=== PATIENT | male | born 1965 ===

== ENCOUNTER 2024-05-16 14:12 | Outpatient (AMB) | payer MEDICARE, MEDICAID, SELFPAY ==
[2024-05-16 14:19] VITALS: BP 130/70; PULSE 104; O2SAT 97; BMI 35.8
--- NOTE | 2024-05-16 14:19 | MHC.OFFVIS ---
Vital Signs 05/16/24 14:19 Height 5 ft 11 in Weight 256 lb 6.362 oz BMI 35.8 BP 130/70 Blood Pressure Location Lt brachial Position Sitting Pulse 104 H Pulse Source Pulse Oximeter Pulse Oximetry (%) 97 Oxygen Delivery Method Room Air Intake Visit Reasons: arthritis/gout (ATC recs not revd) Intake Note: Patient presents for arthritis and gout, and has had flare up for 3 days. Allergies No Known Allergies Allergy (Verified 05/16/24 14:23) HPI HPI arthritis/gout (ATC recs not revd): Details: He has been having a gout episode at least every month. He had prednisone at home and takes 3-4 tablets of 10 mg prednisone on the initial day and may need it for a few more days. Sometimes he only needs prednisone for a day. A few days ago he started experiencing pain in his foot. He was going to the ER yesterday but did not because of his appointment today. Today he woke up with swelling of his right foot. No other joints are involved. He stopped taking allopurinol 2 weeks ago. He has tried allopurinol 3 occasions and each time he has had a gout flare. [facility] Medical History (Updated 05/16/24 @ 15:23 by Santana Huerta MD) Achilles tendinitis, left leg Low testosterone Hypertension GERD (gastroesophageal reflux disease) CKD (chronic kidney disease) Gout Social History (Updated 05/16/24 @ 14:32 by Shayna Torres CMA) Alcohol intake: current Alcohol intake frequency: holidays/special occasions only Patient Tobacco Use Status: Never used Tobacco Review of Systems Const All systems reviewed & are unremarkable except as noted in HPI and below Physical Exam Vital Signs: Last Vital Signs Pulse 104 H 05/16/24 14:19 BP 130/70 05/16/24 14:19 Pulse Ox 97 05/16/24 14:19 Oxygen Delivery Method Room Air 05/16/24 14:19 BMI result Body Mass Index 35.8 Const Other: General: Comfortable Skin: No lesions seen MSK:Tender right midfoot and MTPs. Soft tissue swelling noted. No ankle tenderness. Good range of motion of right knee and hip. Left lower extremity is normal. Chronic left olecranon bursitis with nodules noted without tenderness on palpation. Good flexion-extension of elbows. Shoulder abduction 120 degrees with full internal and external rotation of both shoulders. 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 Recurrent gout affecting right foot. He is unable to tolerate allopurinol as it induces a gout flare every time he starts it. He has tried allopurinol on 3 occasions and each time he has had a gout flare. He has had recurrent gout flares monthly resolved with prednisone. Initially had loose stools when he started colchicine but that has subsided. Code(s): M10.9 - Gout, unspecified Category: Medical Qualifiers: Chronicity: chronic Gout etiology: due to renal impairment Gout site: multiple sites Presence of tophus: with tophus Qualified Code(s): M1A.39X1 - Chronic gout due to renal impairment, multiple sites, with tophus (tophi) Plan: Labs for disease and drug monitoring ordered Continue colchicine 0.6 mg twice a day After lab results are back, we will start PA process for Uloric Return to clinic in 1-2 months Orders: Orders Alanine Aminotransferase Today M10.9 - Gout, unspecified Uric Acid Today M10.9 - Gout, unspecified Creatinine Today M10.9 - Gout, unspecified Aspartate Amino Transferase Today M10.9 - Gout, unspecified Complete Blood Count Auto Diff Today M10.9 - Gout, unspecified Medications: New prednisone Take 1 tablet daily with food until joint pain and swelling resolves 40 mg (2 x 20 mg) PO DAILY 28 tabs 0RF Coding Level of Care Code Est Pt Level 4 (64752) Complex EM visit Add On G2211 Diagnoses Chronic gout due to renal impairment of multiple sites with tophus M1A.39X1 Chronicity: chronic Gout etiology: due to renal impairment Gout site: multiple sites Presence of tophus: with tophus
== END 2024-05-16 14:53 | disposition home or self-care (01) ==
PROVIDERS: Visit Provider Internal Medicine Rheumatology
DX: M1A.39X1 Chronic gout due to renal impairment, multiple sites, with tophus (tophi) (principal)
CPT/HCPCS: 99214; G2211

== ENCOUNTER → 2024-05-16 14:12 | Outpatient (BNVA) | payer MEDICARE, SELFPAY | PROVIDERS: Visit Provider Internal Medicine Rheumatology | DX: M1A.39X1 Chronic gout due to renal impairment, multiple sites, with tophus (tophi) (principal) | CPT/HCPCS: 99212 ==

== ENCOUNTER 2024-06-04 15:01 | Outpatient (AMB) | payer MEDICARE, MEDICAID, SELFPAY ==
--- NOTE | 2024-06-04 15:29 | AM.OFFVISNUR ---
Intake Visit Reasons: injection depomedrol Allergies No Known Allergies Allergy (Verified 05/16/24 14:23) Office Meds methylprednisolone sod suc(PF) 125 mg/2 mL solution for injection Performing Provider: Katelynn Mccoy MD Performing Location: [facility] Administered by: Frank Barr RN on 06/04/24 15:29 Dose Route Admin Location Dispensed Lot Number Expiration Date NDC Busgirl 80 mg IM left buttock 1.28 ea [id number] 11/18/25 7647-6268-90 [facility] sod suc(PF) 40 mg/mL solution for injection Performing Provider: Katelynn Mccoy MD Performing Location: [facility] Administered by: Frank Barr RN on 06/04/24 15:29 Dose Route Admin Location Dispensed Lot Number Expiration Date NDC Busgirl 40 mg IM Right buttock 1 ea [id number] 10/19/25 2348-0767-80 [facility] Comments: Consents signed for procedure. Confirmed dosage with Dr. Huerta and [facility]. Pt received 40 mg IM injection of depo-medrol in Right buttock and 80 mg IM depo-medrol in Left buttock. Patient tolerated procedure well w/o issue or concern. Pt educated on s/s to be aware of e.g. flushing, increased pain/warmth, swelling, tenderness, redness, rash to injected area. Pt instructed to call office or seek urgent medical attention should he become symptomatic. Patient observed for adverse side effects x 30 minutes without incident. Assessment & Plan Assessment & Plan Orders: Orders AMB Methylprednisolone Sod Succ Injection Today M1A.39X1 - Chronic gout due to renal impairment, multiple sites, with tophus (tophi) Medications: New methylprednisolone sod suc(PF) 40 mg IM ONCE 1 ea 0RF M1A.39X1 - Chronic gout due to renal impairment, multiple sites, with tophus (tophi) methylprednisolone sod suc(PF) 80 mg (1.28 mL) IM ONCE 1 ea 0RF M1A.39X1 - Chronic gout due to renal impairment, multiple sites, with tophus (tophi)
== END 2024-06-04 15:51 | disposition home or self-care (01) ==
PROVIDERS: Visit Provider Internal Medicine Rheumatology
DX: M1A.39X1 Chronic gout due to renal impairment, multiple sites, with tophus (tophi) (principal)

== ENCOUNTER → 2024-06-04 15:01 | Outpatient (BNVA) | payer MEDICARE, MEDICAID, SELFPAY | PROVIDERS: Visit Provider Internal Medicine Rheumatology | DX: M1A.39X1 Chronic gout due to renal impairment, multiple sites, with tophus (tophi) (principal) | CPT/HCPCS: 96372 ==

== ENCOUNTER 2024-06-18 08:20 | Outpatient (AMB) | payer MEDICARE, MEDICAID, SELFPAY ==
--- NOTE | 2024-06-18 08:21 | A.OFFVIS_ITS ---
Vital Signs 06/18/24 08:24 Height 5 ft 11 in Weight 257 lb 6 oz BMI 35.9 BP 124/72 Blood Pressure Location Lt brachial Position Sitting Pulse 103 H Pulse Source Pulse Oximeter Pulse Oximetry (%) 95 Oxygen Delivery Method Room Air Intake Visit Reasons: 1 mo follow up Intake Note: Patient presents for follow up on gout, last seen 05/16/[address] Huerta Allergies No Known Allergies Allergy (Verified 06/18/24 08:25) HPI HPI 1 mo follow up: Details: He had 2 weeks relief with Depo-Medrol 120 mg IM. He woke up this morning with left knee and ankle pain. He has pain behind his Achilles tendon. After receiving Depo-Medrol he reports that left elbow swelling and nodules reduced in size. He has hand pain and swelling. He tried Ozempic short term from his friend who had extra medication and received benefit. He saw PCP who told him that his blood pressure has improved along with other medical conditions. He was referred to a specialist for medication management of weight loss but reports that insurance of the practice did does not cover visit. [facility] Medical History (Updated 06/18/24 @ 09:16 by Santana Huerta MD) Achilles tendinitis, left leg Low testosterone Hypertension GERD (gastroesophageal reflux disease) CKD (chronic kidney disease) Gout Social History (Updated 05/16/24 @ 14:32 by Shayna Torres [employer]ICE) Alcohol intake: current Alcohol intake frequency: holidays/special occasions only Patient Tobacco Use Status: Never used Tobacco Review of Systems Const All systems reviewed & are unremarkable except as noted in HPI and below Physical Exam Vital Signs: Last Vital Signs Pulse 103 H 06/18/24 08:24 BP 124/72 06/18/24 08:24 Pulse Ox 95 06/18/24 08:24 Oxygen Delivery Method Room Air 06/18/24 08:24 BMI result Body Mass Index 35.9 Const Other: General: Comfortable Skin: No lesions seen MSK: Tender and swollen bilateral 3rd MCPs and PIPs. He is unable to make us if with both hands. No tenderness of wrists. Chronic left olecranon bursitis with nodules noted without tenderness on palpation. Good flexion-extension of elbows. Good range of motion of shoulders. Left knee is swollen with tenderness on palpation. No tenderness of tibial talar joint. No midfoot tenderness. Tenderness with soft tissue swelling left Achilles tendon. No MTP tenderness. Assessment & Plan Assessment & Plan (1) Gout: Comment: Polyarticular chronic tophaceous gout is uncontrolled. He has required multiple courses of prednisone including Depo-Medrol but continues to have recurrent episodes on colchicine 0.6 mg b.i.d.. He could not tolerate allopurinol with introduction on 3 occasions as it caused gout flare. We discussed next steps in treatment with consideration of CKD stage III (11/2023 labs). I will start longer prednisone course to reduce frequency of gout flares and it will act as a bridge to urate lowering therapy, Uloric. Code(s): M10.9 - Gout, unspecified Category: Medical Qualifiers: Chronicity: chronic Gout etiology: due to renal impairment Gout site: multiple sites Presence of tophus: with tophus Qualified Code(s): M1A.39X1 - Chronic gout due to renal impairment, multiple sites, with tophus (tophi) Plan: Labs for disease and drug monitoring ordered Continue colchicine 0.6 mg twice a day Start prednisone course: 40 mg daily for 2 weeks, 30 mg daily for 2 weeks, 20 mg daily for 2 weeks then remain on 10 mg daily Uloric 40 mg daily ordered We discussed weight management. He was referred to a ?enocrinologist specialist but the practice will not accept his insurance. Follow-up with PCP. I recommend that he contact [facility] for visit with sanding machine operator Dr. Cassidy Conley. Return to clinic in 1 month Medications: New febuxostat (Uloric) 40 mg PO DAILY 30 tabs 11RF prednisone Take 4 daily 2 week, 3 tablet daily 2 week, 2 tablets daily 2 weeks, then stay on prednisone 10mg daily 10 mg PO DIRECTED 144 tabs 0RF Coding Level of Care Code Est Pt Level 4 (91376) Complex EM visit Add On G2211 Diagnoses Chronic gout due to renal impairment of multiple sites with tophus M1A.39X1 Chronicity: chronic Gout etiology: due to renal impairment Gout site: multiple sites Presence of tophus: with tophus
[2024-06-18 08:24] VITALS: BP 124/72; PULSE 103; O2SAT 95; BMI 35.9
--- OUTSIDE RECORDS SUMMARY | 2024-06-18 08:42 | XMS_ITS | Encounter Summary ---
Author Organization [facility], Address [address] [address] Phone Care Team Providers Care Correspondence Representative Name Role Phone Alexey Espinosa MD Primary Care Provider [phone]- [phone] Encounter Details Date Type Department Care Team (Late st Contact Info) Description 03/25/2024 Documentation Only [facility] [address] [place] [address] Juan Francisco Sidhu [place] [address] [place] [phone] Social History Tobacco Use Types Packs/Day Years Used Date Smoking Tobacco: Never Assessed Sex and Gender Information Value Date Recorded Sex Assigned at Not on file Legal Sex Male 2:38 PM EST Gender Identity Not on file Sexual Orientation Not on file documented as of this encounter Plan of Treatment Upcoming Encounters Date Type Department Care Team (Late st Contact Info) Description 08/30/2024 3:30 PM EDT Office Visit [facility] [address] [place] [address] Tyler Thomas MD [address] [place] [address] documented as of this encounter Visit Diagnoses Not on filedocumented in this encounter Care Teams Correspondence Representative Relationship Specialty Start Date End Date Alexey Espinosa MD [address] [place] [address] PCP - General Internal Medicine 03/25/24 documented as of this encounter
--- OUTSIDE RECORDS SUMMARY | 2024-06-18 08:42 | XMS_ITS | Clinical Summary ---
Author Organization [facility] Address [address] [address] Phone Care Team Providers Care Recruiting And Selection Consultant Name Role Phone Alexey Espinosa MD Primary Care Provider +1- [phone] Encounters Date Type Department Care Team Description 03/25/2024 Documentation Only [facility] [address] [address] Juan Francisco Sidhu [place] from Last 3 Months Social History Tobacco Use Types Packs/Day Years Used Date Smoking Tobacco: Never Assessed Sex and Gender Information Value Date Recorded Sex Assigned at Not on file Legal Sex Male 2:38 PM EST Gender Identity Not on file Sexual Orientation Not on file Plan of Treatment Upcoming Encounters Date Type Department Care Team (Late st Contact Info) Description 08/30/2024 3:30 PM EDT Office Visit [facility] [address] [address] Tyler Thomas MD [address] [place] [address] [place] [place] [address] Health Maintenance Due Date Last Done Comments Pneumococcal Vaccine: Pediat rics (0 to 5 Years) and At-Risk Patients (6 to 64 Years) (1 of 2 - PCV) [birth year]02/1971 Hepatitis B Vaccine (1 of 3 - 19+ 3-dose series) 12/01 Colorectal Cancer Screening: Annual FOBT 2014 Colorectal Cancer Screening: Colonoscopy 2014 Colorectal Cancer Screening: Sigmoidoscopy 2014 Influenza Vaccine (#1) 2024 Insurance MEDICARE MEDICAID [place] Care Teams Recruiting And Selection Consultant Relationship Specialty Start Date End Date Alexey Espinosa MD [address] [place] [id number] PCP - General Internal Medicine 03/25/24
== END 2024-06-18 09:07 | disposition home or self-care (01) ==
PROVIDERS: Visit Provider Internal Medicine Rheumatology
DX: M1A.39X1 Chronic gout due to renal impairment, multiple sites, with tophus (tophi) (principal)
CPT/HCPCS: 99214; G2211

== ENCOUNTER → 2024-06-18 08:20 | Outpatient (BNVA) | payer MEDICARE, MEDICAID, SELFPAY | PROVIDERS: Visit Provider Internal Medicine Rheumatology | DX: M1A.39X1 Chronic gout due to renal impairment, multiple sites, with tophus (tophi) (principal) | CPT/HCPCS: 99212 ==

== ENCOUNTER 2024-07-16 08:33 | Outpatient (REF) | payer MEDICARE, MEDICAID, SELFPAY ==
--- OUTSIDE RECORDS SUMMARY | 2024-07-16 09:05 | XMS_ITS | Encounter Summary ---
Author Organization [facility] [place], Address [address] [address] Phone Care Team Providers Care Sales Team Manager Name Role Phone Alexey Espinosa MD Primary Care Provider +1- [phone] Encounter Details Date Type Department Care Team (Late st Contact Info) Description 03/25/2024 Documentation Only [facility] [address] [place] [address] Juan Francisco Sidhu [place] [address] [place] [phone] Social History Tobacco Use Types Packs/Day Years [...] Visit [facility] [address] [place] [address] Tyler Thomas MD [address] [facility] [address] [place] [address] documented as of this encounter Visit Diagnoses Not on filedocumented in this encounter Care Teams Sales Team Manager Relationship Specialty Start Date End Date Alexey Espinosa MD [address] [place] [address] PCP - General Internal Medicine 03/25/24 documented as of this encounter
--- OUTSIDE RECORDS SUMMARY | 2024-07-16 09:05 | XMS_ITS | Clinical Summary ---
Author Organization [facility] Address [address] [facility] [address] [facility] [place] [address] Phone Care Team Providers Care Case Management Coordinator Name Role Phone Alexey Espinosa MD Primary Care Provider +1- [phone] Social History Tobacco Use Types Packs/Day Years [...] Office Visit [facility] [address] [facility] [address] [address] Tyler Thomas MD [address] [facility] [place] [address] Health Maintenance Due Date Last [...] 2024 Insurance MEDICARE [place]ICAID [place] Care Teams Case Management Coordinator Relationship Specialty Start Date End Date Alexey Espinosa MD [address] [place] [id number] PCP - General Internal Medicine 03/25/24
[2024-07-16 18:06] LABS: MANUAL DIFF FLAG NO
[2024-07-16 18:12] LABS: Basophils Percent Auto 0.5 % (0-2); Eosinophils Absolute Auto 0.1 X10*3/uL (0.0-0.4); Eosinophils Percent Auto 1.2 % (0-4); Hematocrit 45.8 % (42.0-52.0); Hemoglobin 14.8 g/dl (14.0-18.0); Imm Gran Abs Auto 0.04 X10*3/uL (0.00-0.03); Imm Gran Pct Auto 0.9 % (0.0-0.4); Lymphocytes Absolute Auto 0.9 X10*3/uL (1.2-4.9); Mean Corpuscular HGB Conc 32.3 g/dl (31.0-36.0); Mean Corpuscular Hemoglobin 29.7 pg (27.0-33.0); Mean Platelet Volume 11.3 fL (9.4-12.4); Monocytes Absolute Auto 0.4 X10*3/uL (0.1-1.2); Monocytes Percent Auto 10.3 % (2-11); Neutrophils Absolute Auto 2.9 x10*3/uL (2.0-8.3); Neutrophils Percent Auto 67.1 % (45-73); Platelet Count 295 X10*3/uL (160-400); Red Blood Count 4.98 X10*6/uL (4.60-5.80); Red Cell Distribution Width 14.3 % (11.0-16.0); White Blood Count 4.3 X10*3/uL (4.8-10.8)
[2024-07-16 18:26] LABS: Alanine Aminotransferase 34 U/L (0-40); Aspartate Amino Transferase 31 U/L (5-37); Estimated Glomerular Filt Rate 41; Uric Acid 11.8 mg/dL (3.4-7.0)
== END 2024-07-16 08:34 | disposition home or self-care (01) ==
LOC: HO.HKASLDS 08:33
PROVIDERS: Visit Provider Internal Medicine Rheumatology
DX: M10.9 Gout, unspecified (principal)
CPT/HCPCS: 36415; 82565; 84450; 84460; 84550; 85025

== ENCOUNTER 2024-07-18 09:11 | Outpatient (AMB) | payer MEDICARE, MEDICAID, SELFPAY ==
--- NOTE | 2024-07-18 09:22 | A.OFFVIS_ITS ---
Vital Signs 07/18/24 09:23 Height 5 ft 10 in Weight 261 lb 0.437 oz BMI 37.4 BP 126/92 H Blood Pressure Location Lt brachial Position Sitting Pulse 106 H Pulse Source Pulse Oximeter Pulse Oximetry (%) 95 Oxygen Delivery Method Room Air Intake Visit Reasons: Follow Up 1mo Intake Note: Patient presents for gout follow up. Allergies No Known Allergies Allergy (Verified 07/18/24 09:24) HPI HPI Follow Up 1mo: Details: He took prednisone for at least 2 weeks and stopped when pain resolved. [facility] Medical History (Updated 07/18/24 @ 09:49 by Santana Huerta MD) Achilles tendinitis, left leg Low testosterone Hypertension GERD (gastroesophageal reflux disease) CKD (chronic kidney disease) Gout Social History (Updated 05/16/24 @ 14:32 by Shayna Torres [facility]) Alcohol intake: current Alcohol intake frequency: holidays/special occasions only Patient Tobacco Use Status: Never used Tobacco Review of Systems Const All systems reviewed & are unremarkable except as noted in HPI and below Physical Exam Vital Signs: Last Vital Signs Pulse 106 H 07/18/24 09:23 BP 126/92 H 07/18/24 09:23 Pulse Ox 95 07/18/24 09:23 Oxygen Delivery Method Room Air 07/18/24 09:23 BMI result Body Mass Index 37.4 Const Other: General: Comfortable Skin: No lesions seen MSK: No tenderness of wrists or small joints in hands. Chronic left olecranon bursitis with nodules noted with tenderness on palpation and warmth. Olecranon bursitis palpated right elbow without warmth or tenderness. Good flexion- extension of elbows. Good range of motion of shoulders. Left knee is swollen without tenderness on palpation with warmth. Pain with left knee flexion and extension. No tenderness of tibial talar joint. No midfoot tenderness. No MTP tenderness. Assessment & Plan Assessment & Plan (1) Gout: Comment: Uncontrolled. He did not complete full course of prednisone. We discussed the importance of treatment of polyarticular gout with a prolonged course of prednisone. Febuxostat has been approved. Uric acid level 07/16/2024 was 11.8. His uric acid goal is less than 5. Rheumatology history: Polyarticular chronic tophaceous gout. He has required multiple courses of prednisone including Depo-Medrol but continues to have recurrent episodes on colchicine 0.6 mg b.i.d. He could not tolerate allopurinol with introduction on 3 occasions as it caused gout flare. CKD stage III (11/2023 labs). Febuxostat 06/2024- Code(s): M10.9 - Gout, unspecified Category: Medical Qualifiers: Chronicity: chronic Gout etiology: due to renal impairment Gout site: multiple sites Presence of tophus: with tophus Qualified Code(s): M1A.39X1 - Chronic gout due to renal impairment, multiple sites, with tophus (tophi) Plan: Start febuxostat 40 mg daily Continue colchicine 0.6 mg twice a day for gout prophylaxis Start prednisone course: 40 mg daily for 2 weeks, 30 mg daily for 2 weeks, 20 mg daily for 2 weeks, 10 mg daily for 2 weeks, 5 mg daily for 2 weeks and stop Encouraged weight loss. I recommend PCP follow-up for consideration of medical management of weight loss Return to clinic in 6 weeks Medications: Changed From febuxostat (Uloric) 40 mg PO DAILY 30 tabs 11RF To febuxostat (Uloric) PA approved. 40 mg PO DAILY 30 tabs 11RF From prednisone Take 4 daily 2 week, 3 tablet daily 2 week, 2 tablets daily 2 weeks, then stay on prednisone 10mg daily 10 mg PO DIRECTED 144 tabs 0RF To prednisone Take 4 daily 2 week, 3 tablet daily 2 week, 2 tablets daily 2 weeks, 1 tablet daily 2 weeks, 0.5 tablet daily 2 weeks then stop. Take prednisone with food. 10 mg PO DIRECTED 210 tabs 0RF Discontinued prednisone Take 1 tablet daily with food until joint pain and swelling resolves Discontinued Reason: Doctor's Order 40 mg (2 x 20 mg) PO DAILY 28 tabs 0RF Coding Level of Care Code Est Pt Level 4 (85878) Complex EM visit Add On G2211 Diagnoses Chronic gout due to renal impairment of multiple sites with tophus M1A.39X1 Chronicity: chronic Gout etiology: due to renal impairment Gout site: multiple sites Presence of tophus: with tophus
[2024-07-18 09:23] VITALS: BP 126/92; PULSE 106; O2SAT 95; BMI 37.4
--- OUTSIDE RECORDS SUMMARY | 2024-07-18 10:02 | XMS_ITS | Encounter Summary ---
Author Organization [facility] Address [address] [place] [address] Care Team Providers Care Stress Test Technician Name Role Phone Alexey Espinosa MD Primary Care Provider +1- [phone] Encounter Details Date Type Department Care Team (Late st Contact Info) Description 07/16/2024 Lab Requisition [facility] - Main Lab [address] [place] [address] Naresh Lennon PA [address] [place] [phone] Testicular hypofunction Social History Tobacco Use Types Packs/Day Years Used Date Smoking Tobacco: Never Assessed Sex and Gender Information Value Date Recorded Sex Assigned at Not on file Legal Sex Male 4:16 PM EST Gender Identity Not on file Sexual Orientation Not on file documented as of this encounter Plan of Treatment Not on file documented as of this encounter Procedures Procedure Name Priority Date/Time Associated Diagnosis Comments CBC WITH AUTO DIFFERENTIAL Routine 07/16/2024 9:07 AM EST Testicular hypofunction CBC AND DIFFERENTIAL Routine 07/16/2024 9:07 AM EST Testicular hypofunction documented in this encounter Results * (ABNORMAL) CBC auto differential (07/16/2024 9:07 AM EST) WBC 4.2(L) 4.8 - 10.8 K/[facility] LAB HEMETOLOGY METHOD 07/16/2024 1:55 PM EST [facility] RBC 5.00 4.50 - 5.50 M/[facility] LAB HEMETOLOGY METHOD 07/16/2024 1:55 PM EST [facility] Hemoglobin 15.0 13.5 - 17.5 g/dL LAB HEMETOLOGY METHOD 07/16/2024 1:55 PM [facility] Hematocrit 46.5 42.0 - 54.0 % LAB HEMETOLOGY METHOD 07/16/2024 1:55 PM [facility] MCV 92.3 79.0 - 98.0 FL LAB HEMETOLOGY METHOD 07/16/2024 1:55 PM [facility] MCH 29.8 27.0 - 32.0 pcg LAB HEMETOLOGY METHOD 07/16/2024 1:55 PM [facility] MCHC 32.3 32.0 - 37.0 g/dL LAB HEMETOLOGY METHOD 07/16/2024 1:55 PM [facility] RDW 14.3 11.0 - 15.0 % LAB HEMETOLOGY METHOD 07/16/2024 1:55 PM [facility] Platelets 237 130 - 400 K/mcL LAB HEMETOLOGY METHOD 07/16/2024 1:55 PM [facility] MPV 11.9(H) 7.0 - 11.0 FL LAB HEMETOLOGY METHOD 07/16/2024 1:55 PM [facility] NRBC 0.0 <1.0 % LAB HEMETOLOGY METHOD 07/16/2024 1:55 PM [facility] NRBC Absolute 0.00 <0.10 K/mcL LAB HEMETOLOGY METHOD 07/16/2024 1:55 PM [facility] Neutrophils Relative 67.7 % LAB HEMETOLOGY METHOD 07/16/2024 1:55 PM [facility] Lymphocytes Relative 19.0 % LAB HEMETOLOGY METHOD 07/16/2024 1:55 PM [facility] Monocytes Relative 10.7 % LAB HEMETOLOGY METHOD 07/16/2024 1:55 PM [facility] Eosinophils Relative 1.2 % LAB HEMETOLOGY METHOD 07/16/2024 1:55 PM EST [facility] Basophils Relative 0.5 % LAB HEMETOLOGY METHOD 07/16/2024 1:55 PM [facility] Immature Granulocytes Relative 0.9 % LAB HEMETOLOGY METHOD 07/16/2024 1:55 PM [facility] Neutrophils Absolute 2.86 1.50 - 7.00 K/mcL LAB HEMETOLOGY METHOD 07/16/2024 1:55 PM [facility] Lymphocytes Absolute 0.80(L) 1.00 - 5.00 K/mcL LAB HEMETOLOGY METHOD 07/16/2024 1:55 PM [facility] Monocytes Absolute 0.45 0.20 - 1.00 K/mcL LAB HEMETOLOGY METHOD 07/16/2024 1:55 PM EST [facility] Eosinophils Absolute 0.05 0.00 - 0.50 K/mcL LAB HEMETOLOGY METHOD 07/16/2024 1:55 PM EST [facility] Basophils Absolute 0.02 0.00 - 0.20 K/mcL LAB HEMETOLOGY METHOD 07/16/2024 1:55 PM [facility] Immature Granulocytes Absolute 0.04(H) 0.00 - 0.03 K/mcL LAB HEMETOLOGY METHOD 07/16/2024 1:55 PM EST [facility] Blood Venous blood specimen / Unknown 07/16/2024 9:07 AM EST 07/16/2024 1:09 PM EST us Naresh MUNOZ LAB BLOOD ORDERABLES Final Res ult [facility] [address] [place] [address], documented in this encounter Visit Diagnoses Diagnosis Testicular hypofunction Other testicular hypofunction documented in this encounter Care Teams Stress Test Technician Relationship Specialty Start Date End Date Alexey Espinosa MD [address] [place] [address] PCP - General Internal Medicine 07/16/24 documented as of this encounter
--- OUTSIDE RECORDS SUMMARY | 2024-07-18 10:02 | XMS_ITS | Clinical Summary ---
Author Organization 299 [facility] Address [address] [place] [address] Phone Care Team Providers Care Clinical Data Manager Name Role Phone Alexey Espinosa MD Primary Care Provider +1- [phone] Encounters Date Type Department Care Team Description 07/16/2024 Lab Requisition [facility] - Main Lab 299 [facility] [place] [address] Naresh Lennon PA Testicular hypofunction from Last 3 Months Social History Tobacco Use Types Packs/Day Years Used Date Smoking Tobacco: Never Assessed Sex and Gender Information Value Date Recorded Sex Assigned at Not on file Legal Sex Male 4:16 PM EST Gender Identity Not on file Sexual Orientation Not on file Plan of Treatment Health Maintenance Due Date Last Done Comments DTaP,Tdap,and Td Vaccines (1 - Tdap) 1984 Hepatitis B Vaccines (1 of 3 - 19+ 3-dose series) 1984 Pneumococcal Vaccine: 50+ Ye ars (1 of 1 - PCV) 12/02/2015 Zoster Vaccines (1 of 2) 12/02/2015 COVID-19 Vaccine (2023-2 5 season) 2024 Influenza Vaccine (#1) 2024 Cholesterol Screening (Lipid Panel) 07/17/2024 Colorectal Cancer Screening: Colonoscopy 07/17/2024 Depression Screening 07/17/2024 HIV Screening 07/17/2024 Hepatitis C Screening 07/17/2024 Medicare Annual Wellness Visit 07/17/2024 Social Influencers of Health Screening 07/17/2024 HIB Vaccines Aged Out No longer eligi ble based on patient's age to complete this topic HPV Vaccines Aged Out No longer eligi ble based on patient's age to complete this topic Hepatitis A Vaccines Aged Out No long er eligible based on patient's age to complete this topic IPV Vaccines Aged Out No longer eligi ble based on patient's age to complete this topic MMR Vaccines Aged Out No longer eligi ble based on patient's age to complete this topic Meningococcal ACWY Vaccine Aged Out N o longer eligible based on patient's age to complete this topic Meningococcal B Vacine Aged Out No lo nger eligible based on patient's age to complete this topic Pneumococcal Vaccine: Pediat rics (0 to 5 Years) and At-Risk Patients (6 to 64 Years) Aged Out No longer eligible b ased on patient's age to complete this topic RSV Immunization Patients Un ortiz 20 months Aged Out No longer eligible b ased on patient's age to complete this topic Varicella Vaccines Aged Out No longer eligible based on patient's age to complete this topic Procedures Procedure Name Priority Date/Time Associated Diagnosis Comments CBC WITH AUTO DIFFERENTIAL Routine 07/16/2024 9:07 AM EST Testicular hypofunction CBC AND DIFFERENTIAL Routine 07/16/2024 9:07 AM EST Testicular hypofunction from Last 3 Months Results * (ABNORMAL) CBC auto differential (07/16/2024 9:07 AM EST) WBC 4.2(L) 4.8 - 10.8 K/mcL LAB HEMETOLOGY METHOD 07/16/2024 1:55 PM [facility] LAB RBC 5.00 4.50 - 5.50 M/mcL LAB HEMETOLOGY METHOD 07/16/2024 1:55 PM [facility] LAB Hemoglobin 15.0 13.5 - 17.5 g/dL LAB HEMETOLOGY METHOD 07/16/2024 1:55 PM [facility] LAB Hematocrit 46.5 42.0 - 54.0 % LAB HEMETOLOGY METHOD 07/16/2024 1:55 PM [facility] LAB MCV 92.3 79.0 - 98.0 FL LAB HEMETOLOGY METHOD 07/16/2024 1:55 PM [facility] LAB MCH 29.8 27.0 - 32.0 pcg LAB HEMETOLOGY METHOD 07/16/2024 1:55 PM [facility] LAB MCHC 32.3 32.0 - 37.0 g/dL LAB HEMETOLOGY METHOD 07/16/2024 1:55 PM [facility] LAB RDW 14.3 11.0 - 15.0 % LAB HEMETOLOGY METHOD 07/16/2024 1:55 PM [facility] LAB Platelets 237 130 - 400 K/mcL LAB HEMETOLOGY METHOD 07/16/2024 1:55 PM [facility] LAB MPV 11.9(H) 7.0 - 11.0 FL LAB HEMETOLOGY METHOD 07/16/2024 1:55 PM [facility] LAB NRBC 0.0 <1.0 % LAB HEMETOLOGY METHOD 07/16/2024 1:55 PM [facility] LAB NRBC Absolute 0.00 <0.10 K/mcL LAB HEMETOLOGY METHOD 07/16/2024 1:55 PM [facility] LAB Neutrophils Relative 67.7 % LAB HEMETOLOGY METHOD 07/16/2024 1:55 PM [facility] LAB Lymphocytes Relative 19.0 % LAB HEMETOLOGY METHOD 07/16/2024 1:55 PM [facility] LAB Monocytes Relative 10.7 % LAB HEMETOLOGY METHOD 07/16/2024 1:55 PM [facility] LAB Eosinophils Relative 1.2 % LAB HEMETOLOGY METHOD 07/16/2024 1:55 PM [facility] LAB Basophils Relative 0.5 % LAB HEMETOLOGY METHOD 07/16/2024 1:55 PM [facility] LAB Immature Granulocytes Relative 0.9 % LAB HEMETOLOGY METHOD 07/16/2024 1:55 PM [facility] LAB Neutrophils Absolute 2.86 1.50 - 7.00 K/mcL LAB HEMETOLOGY METHOD 07/16/2024 1:55 PM EST [facility] Lymphocytes Absolute 0.80(L) 1.00 - 5.00 K/[facility] LAB HEMETOLOGY METHOD 07/16/2024 1:55 PM EST [facility] LAB Monocytes Absolute 0.45 0.20 - 1.00 K/mcL LAB HEMETOLOGY METHOD 07/16/2024 1:55 PM EST [facility] Eosinophils Absolute 0.05 0.00 - 0.50 K/[facility] LAB HEMETOLOGY METHOD 07/16/2024 1:55 PM EST [facility] Basophils Absolute 0.02 0.00 - 0.20 K/[facility] LAB HEMETOLOGY METHOD 07/16/2024 1:55 PM EST [facility] Immature Granulocytes Absolute 0.04(H) 0.00 - 0.03 K/[facility] LAB HEMETOLOGY METHOD 07/16/2024 1:55 PM EST [facility] Blood Venous blood specimen / Unknown 07/16/2024 9:07 AM EST 07/16/2024 1:09 PM EST us Naresh MUNOZ LAB BLOOD ORDERABLES Final Res ult [facility] [address] [place] [address], [place] [phone] from Last 3 Months Insurance MEDICARE MEDICAID - [place] Care Teams Clinical Data Manager Relationship Specialty Start Date End Date Alexey Espinosa MD [address] [place] [phone] PCP - General Internal Medicine 07/16/24
--- OUTSIDE RECORDS SUMMARY | 2024-07-18 10:02 | XMS_ITS | Encounter Summary ---
Author Organization [facility], Address [address] [address] Phone Care Team Providers Care Capper Machine Operator Name Role Phone Alexey Espinosa MD Primary Care Provider +1- [phone] Encounter Details Date Type Department Care Team (Late st Contact Info) Description 03/25/2024 Documentation Only [facility] [address] [place] [address] Juan Francisco Sidhu [place] [address] [place] [phone] Social History Tobacco Use Types Packs/Day Years [...] Visit [facility] [address] [place] [address] Tyler Thomas MD [address] [place] [address] documented as of this encounter Visit Diagnoses Not on filedocumented in this encounter Care Teams Capper Machine Operator Relationship Specialty Start Date End Date Alexey Espinosa MD [address] [place] [address] PCP - General Internal Medicine 03/25/24 documented as of this encounter
--- OUTSIDE RECORDS SUMMARY | 2024-07-18 10:02 | XMS_ITS | Clinical Summary ---
Author Organization [facility] Address [address] [place] [address] Phone Care Team Providers Care [employer] Team Member Name Role Phone Alexey Espinosa MD Primary Care Provider +1- [phone] Social History Tobacco Use Types Packs/Day Years [...] Office Visit [facility] [address] [place] [address] Tyler Thomas MD [address] [facility] [address] [place] [address] Health Maintenance Due Date Last [...] 2024 Insurance MEDICARE [place]ICAID [place] Care Teams [employer] Team Member Relationship Specialty Start Date End Date Alexey Espinosa MD [address] [place] [phone] PCP - General Internal Medicine 03/25/24
== END 2024-07-18 09:42 | disposition home or self-care (01) ==
PROVIDERS: Visit Provider Internal Medicine Rheumatology
DX: M1A.39X1 Chronic gout due to renal impairment, multiple sites, with tophus (tophi) (principal)
CPT/HCPCS: 99214; G2211

== ENCOUNTER → 2024-07-18 09:11 | Outpatient (BNVA) | payer MEDICARE, MEDICAID, SELFPAY | PROVIDERS: Visit Provider Internal Medicine Rheumatology | DX: M1A.39X1 Chronic gout due to renal impairment, multiple sites, with tophus (tophi) (principal) | CPT/HCPCS: 99212 ==

== ENCOUNTER 2024-08-29 09:59 | Outpatient (AMB) | payer MEDICARE, MEDICAID, SELFPAY ==
--- NOTE | 2024-08-29 10:03 | A.OFFVIS_ITS ---
Vital Signs 08/29/24 10:05 Height 5 ft 10 in Weight 261 lb 8 oz BMI 37.5 BP 130/80 Blood Pressure Location Lt brachial Position Sitting Pulse 113 H Pulse Source Pulse Oximeter Pulse Oximetry (%) 96 Oxygen Delivery Method Room Air Intake Visit Reasons: 6 Weeks Intake Note: Patient presents for gout follow up. Accompanied by: self Allergies No Known Allergies Allergy (Verified 08/29/24 10:05) HPI HPI 6 Weeks: Details: No new joint swelling. He completed prednisone course 2 weeks ago. He is moving better. [facility] Medical History Achilles tendinitis, left leg Low testosterone Hypertension GERD (gastroesophageal reflux disease) CKD (chronic kidney disease) Gout Social History Alcohol intake: current Alcohol intake frequency: holidays/special occasions only Patient Tobacco Use Status: Never used Tobacco Review of Systems Const All systems reviewed & are unremarkable except as noted in HPI and below Physical Exam Vital Signs: Last Vital Signs Pulse 113 H 08/29/24 10:05 BP 130/80 08/29/24 10:05 Pulse Ox 96 08/29/24 10:05 Oxygen Delivery Method Room Air 08/29/24 10:05 BMI result Body Mass Index 37.5 Const Other: General: Comfortable Skin: No lesions seen MSK: No tenderness of wrists or small joints in hands. Chronic left olecranon bursa is nodular without swelling Good flexion-extension of elbows. Normal range of motion of shoulders. Mild synovitis of bilateral knees without warmth. No tenderness of ankle joint. No midfoot tenderness. No MTP tenderness. Assessment & Plan Assessment & Plan (1) Gout: Comment: Synovitis and olecranon bursitis has resolved with long prednisone course. He started febuxostat. His uric acid goal is less than 5. Rheumatology history: Polyarticular chronic tophaceous gout. He has required multiple courses of prednisone including Depo-Medrol but continues to have recurrent episodes on colchicine 0.6 mg b.i.d. He could not tolerate allopurinol with introduction on 3 occasions as it caused gout flare. CKD stage III (11/2023 labs). Febuxostat 06/2024- Code(s): M10.9 - Gout, unspecified Category: Medical Qualifiers: Chronicity: chronic Gout etiology: due to renal impairment Gout site: multiple sites Presence of tophus: with tophus Qualified Code(s): M1A.39X1 - Chronic gout due to renal impairment, multiple sites, with tophus (tophi) Plan: Labs for disease and drug monitoring ordered Continue febuxostat 40 mg daily. If uric acid level is not less than 5, I will increase febuxostat to 80 mg daily. He will need a new PA Continue colchicine 0.6 mg twice a day He will take for prednisone 40 mg for 1-5 days when he has a flare. Prednisone prescribed. He will also call office to report that he is having a flare. Return to clinic in 3 months (2) Other alf (current) drug therapy: Code(s): Z79.899 - Other alf (current) drug therapy Category: Medical Plan: See above Orders: Orders Alanine Aminotransferase Today M1A.39X1 - Chronic gout due to renal impairment, multiple sites, with tophus (tophi), Z79.899 - Other alf (current) drug therapy C Reactive Protein Today Z79.899 - Other alf (current) drug therapy Uric Acid Today M1A.39X1 - Chronic gout due to renal impairment, multiple sites, with tophus (tophi), Z79.899 - Other alf (current) drug therapy Erythrocyte Sedimentation Rate Today Z79.899 - Other alf (current) drug therapy Aspartate Amino Transferase Today M1A.39X1 - Chronic gout due to renal impairment, multiple sites, with tophus (tophi), Z79.899 - Other alf (current) drug therapy Complete Blood Count Auto Diff Today M1A.39X1 - Chronic gout due to renal impairment, multiple sites, with tophus (tophi), Z79.899 - Other alf (current) drug therapy Medications: New prednisone Take 2 tablets daily for 1-5 days until gout flare resolves. Take prednisone with food. 40 mg (2 x 20 mg) PO DIRECTED 30 days 60 tabs 0RF Changed From febuxostat (Uloric) PA approved. 40 mg PO DAILY 30 tabs 11RF To febuxostat (Uloric) Dispense 90 day supply. 40 mg PO DAILY 90 tabs 3RF From colchicine 0.6 mg PO BID To colchicine 0.6 mg PO BID 90 days 180 tabs 3RF Coding Level of Care Code Est Pt Level 4 (34531) Complex EM visit Add On G2211 Diagnoses Chronic gout due to renal impairment of multiple sites with tophus M1A.39X1 Chronicity: chronic Gout etiology: due to renal impairment Gout site: multiple sites Presence of tophus: with tophus Other termite treater (current) drug therapy Z79.899
[2024-08-29 10:05] VITALS: BP 130/80; PULSE 113; O2SAT 96; BMI 37.5
--- OUTSIDE RECORDS SUMMARY | 2024-08-29 11:35 | XMS_ITS | Clinical Summary ---
Author Organization 299 [facility] Address [address] [place] [address] Phone Care Team Providers Care Accounting Policy Consultant Name Role Phone Alexey Espinosa MD Primary Care Provider +1- [phone] Encounters Date Type Department Care Team Description 07/16/2024 Lab Requisition [facility] - Main Lab 299 [email or web address] [address] Naresh Lennon PA Testicular hypofunction [...] 12/02/2015 COVID-19 Vaccine (2023-2 5 season) 2024 Cholesterol Screening (Lipid Panel) 07/17/2024 Colorectal Cancer Screening: Colonoscopy 07/17/2024 Depression Screening 07/17/2024 HIV Screening 07/17/2024 Hepatitis C Screening 07/17/2024 Medicare Annual Wellness Visit 07/17/2024 Social Influencers of Health Screening 07/17/2024 Influenza Vaccine (Season Ended) 2025 HIB Vaccines Aged Out No longer eligi [...] age to complete this topic Meningococcal B Vaccine Aged Out No l onger eligible based on patient's age to complete [...] K/mcL LAB HEMETOLOGY METHOD 07/16/2024 1:55 PM [facility] RBC 5.00 4.50 - 5.50 M/mcL LAB HEMETOLOGY METHOD 07/16/2024 1:55 PM [facility] LAB Hemoglobin 15.0 13.5 - 17.5 g/dL LAB HEMETOLOGY METHOD 07/16/2024 1:55 PM [facility] LAB Hematocrit 46.5 42.0 - 54.0 % LAB HEMETOLOGY METHOD 07/16/2024 1:55 PM [facility] LAB MCV 92.3 79.0 - 98.0 FL LAB HEMETOLOGY METHOD 07/16/2024 1:55 PM [facility] LAB MCH 29.8 27.0 - 32.0 pcg LAB HEMETOLOGY METHOD 07/16/2024 1:55 PM [facility] LAB MCHC 32.3 32.0 - 37.0 g/dL LAB HEMETOLOGY METHOD 07/16/2024 1:55 PM [facility] LAB RDW 14.3 11.0 - 15.0 % LAB HEMETOLOGY METHOD 07/16/2024 1:55 PM [facility] LAB Platelets 237 130 - 400 K/mcL LAB HEMETOLOGY METHOD 07/16/2024 1:55 PM [facility] LAB MPV 11.9(H) 7.0 - 11.0 FL LAB HEMETOLOGY METHOD 07/16/2024 1:55 PM [facility] NRBC 0.0 <1.0 % LAB HEMETOLOGY METHOD 07/16/2024 1:55 PM [facility] LAB NRBC Absolute 0.00 <0.10 K/mcL LAB HEMETOLOGY METHOD 07/16/2024 1:55 PM [facility] Neutrophils Relative 67.7 % LAB HEMETOLOGY METHOD 07/16/2024 1:55 PM [facility] Lymphocytes Relative 19.0 % LAB HEMETOLOGY METHOD 07/16/2024 1:55 PM [facility] Monocytes Relative 10.7 % LAB HEMETOLOGY METHOD 07/16/2024 1:55 PM [facility] Eosinophils Relative 1.2 % LAB HEMETOLOGY METHOD 07/16/2024 1:55 PM [facility] Basophils Relative 0.5 % LAB HEMETOLOGY METHOD 07/16/2024 1:55 PM [facility] Immature Granulocytes Relative 0.9 % LAB HEMETOLOGY METHOD 07/16/2024 1:55 PM [facility] Neutrophils Absolute 2.86 1.50 - 7.00 K/mcL LAB HEMETOLOGY METHOD 07/16/2024 1:55 PM EST [facility] Lymphocytes Absolute 0.80(L) 1.00 - 5.00 K/[facility] LAB HEMETOLOGY METHOD 07/16/2024 1:55 PM EST [facility] Monocytes Absolute 0.45 0.20 - 1.00 K/mcL LAB HEMETOLOGY METHOD 07/16/2024 1:55 PM EST [facility] LAB Eosinophils Absolute 0.05 0.00 - 0.50 K/[facility] LAB HEMETOLOGY METHOD 07/16/2024 1:55 PM EST [facility] Basophils Absolute 0.02 0.00 - 0.20 K/[facility] LAB HEMETOLOGY METHOD 07/16/2024 1:55 PM EST [facility] Immature Granulocytes Absolute 0.04(H) 0.00 - 0.03 K/[facility] LAB HEMETOLOGY METHOD 07/16/2024 1:55 PM EST [facility] Blood Venous blood specimen / Unknown 07/16/2024 9:07 AM EST 07/16/2024 1:09 PM EST us Naresh MUNOZ LAB BLOOD ORDERABLES Final Res ult [facility] [address] [place] [address], [place] [phone] from Last 3 Months Insurance MEDICARE MEDICAID - [place] Care Teams Accounting Policy Consultant Relationship Specialty Start Date End Date Alexey Espinosa MD [address] [place] [address] PCP - General Internal Medicine 07/16/24
--- OUTSIDE RECORDS SUMMARY | 2024-08-29 11:35 | XMS_ITS | Encounter Summary ---
Author Organization [facility], Address [address] [address] Phone Care Team Providers Care Performance Solutions Specialist Name Role Phone Alexey Espinosa MD Primary Care Provider +1- [phone] Encounter Details Date Type Department Care Team (Late st Contact Info) Description 03/25/2024 Documentation Only [facility] [address] [place] [address] [address] [place] [phone] Social History Tobacco Use Types Packs/Day Years [...] Visit [facility] [address] [place] [address] Tyler Thomas MD [address] [place] [address] documented as of this encounter Visit Diagnoses Not on filedocumented in this encounter Care Teams Performance Solutions Specialist Relationship Specialty Start Date End Date Alexey Espinosa MD [address] [place] [address] PCP - General Internal Medicine 03/25/24 documented as of this encounter
--- OUTSIDE RECORDS SUMMARY | 2024-08-29 11:35 | XMS_ITS | Encounter Summary ---
Author Organization [facility] Address [address] [place] [address] Care Team Providers Care Electric Stop Installer Name Role Phone Alexey Espinosa MD Primary Care Provider +1- [phone] Encounter Details Date Type Department Care Team (Late st Contact Info) Description 07/16/2024 Lab Requisition [facility] - Main Lab [address] [place] [address] Naresh Lennon PA [address] [place] [phone] Testicular hypofunction Social History Tobacco Use Types [...] AM EST) WBC 4.2(L) 4.8 - 10.8 K/[facility] LAB HEMETOLOGY METHOD 07/16/2024 1:55 PM EST [facility] RBC 5.00 4.50 - 5.50 M/[facility] LAB HEMETOLOGY METHOD 07/16/2024 1:55 PM EST [facility] Hemoglobin 15.0 13.5 - 17.5 g/dL LAB HEMETOLOGY METHOD 07/16/2024 1:55 PM [facility] LAB Hematocrit 46.5 42.0 - 54.0 % LAB HEMETOLOGY METHOD 07/16/2024 1:55 PM [facility] LAB MCV 92.3 79.0 - 98.0 FL LAB HEMETOLOGY METHOD 07/16/2024 1:55 PM [facility] LAB MCH 29.8 27.0 - 32.0 pcg LAB HEMETOLOGY METHOD 07/16/2024 1:55 PM [facility] LAB MCHC 32.3 32.0 - 37.0 g/dL LAB HEMETOLOGY METHOD 07/16/2024 1:55 PM [facility] RDW 14.3 11.0 - 15.0 % LAB HEMETOLOGY METHOD 07/16/2024 1:55 PM [facility] Platelets 237 130 - 400 K/mcL LAB HEMETOLOGY METHOD 07/16/2024 1:55 PM [facility] MPV 11.9(H) 7.0 - 11.0 FL LAB HEMETOLOGY METHOD 07/16/2024 1:55 PM [facility] NRBC 0.0 <1.0 % LAB HEMETOLOGY METHOD 07/16/2024 1:55 PM [facility] NRBC Absolute 0.00 <0.10 K/mcL LAB HEMETOLOGY METHOD 07/16/2024 1:55 PM [facility] Neutrophils Relative 67.7 % LAB HEMETOLOGY METHOD 07/16/2024 1:55 PM [facility] Lymphocytes Relative 19.0 % LAB HEMETOLOGY METHOD 07/16/2024 1:55 PM [facility] Monocytes Relative 10.7 % LAB HEMETOLOGY METHOD 07/16/2024 1:55 PM [facility] Eosinophils Relative 1.2 % LAB HEMETOLOGY METHOD 07/16/2024 1:55 PM EST [facility] Basophils Relative 0.5 % LAB HEMETOLOGY METHOD 07/16/2024 1:55 PM [facility] Immature Granulocytes Relative 0.9 % LAB HEMETOLOGY METHOD 07/16/2024 1:55 PM [facility] Neutrophils Absolute 2.86 1.50 - 7.00 K/mcL LAB HEMETOLOGY METHOD 07/16/2024 1:55 PM [facility] Lymphocytes Absolute 0.80(L) 1.00 - 5.00 K/mcL LAB HEMETOLOGY METHOD 07/16/2024 1:55 PM [facility] Monocytes Absolute 0.45 0.20 - 1.00 K/mcL LAB HEMETOLOGY METHOD 07/16/2024 1:55 PM EST [facility] Eosinophils Absolute 0.05 0.00 - 0.50 K/mcL LAB HEMETOLOGY METHOD 07/16/2024 1:55 PM EST [facility] Basophils Absolute 0.02 0.00 - 0.20 K/mcL LAB HEMETOLOGY METHOD 07/16/2024 1:55 PM [facility] Immature Granulocytes Absolute 0.04(H) 0.00 - 0.03 K/mcL LAB HEMETOLOGY METHOD 07/16/2024 1:55 PM EST [facility] Blood Venous blood specimen / Unknown 07/16/2024 9:07 AM EST 07/16/2024 1:09 PM EST us Naresh MUNOZ LAB BLOOD ORDERABLES Final Res ult [facility] [address] [place] [address], documented in this encounter Visit Diagnoses Diagnosis Testicular hypofunction Other testicular hypofunction documented in this encounter Care Teams Electric Stop Installer Relationship Specialty Start Date End Date Alexey Espinosa MD [address] [place] [address] PCP - General Internal Medicine 07/16/24 documented as of this encounter
--- OUTSIDE RECORDS SUMMARY | 2024-08-29 11:35 | XMS_ITS | Clinical Summary ---
Author Organization [facility] Address [address] [place] [address] Phone Care Team Providers Care Operations Officer Trust Department Name Role Phone Alexey Espinosa MD Primary Care Provider +1- [phone] Social History Tobacco Use Types Packs/Day Years [...] Office Visit [facility], [address] [place] [address] Tyler Thomas MD [address] [address] [place] [address] Health Maintenance Due Date Last Done Comments Hepatitis B Vaccine (1 of 3 - 19+ 3-dose series) 12/01 Pneumococcal Vaccine: 50+ Years (1 of 2 - PCV) 985 Colorectal Cancer Screening: Annual FOBT 2014 Colorectal Cancer Screening: Colonoscopy 2014 Colorectal Cancer Screening: Sigmoidoscopy 2014 Influenza Vaccine (Season Ended) 2025 Insurance Medicare Medicaid [place] Care Teams Operations Officer Trust Department Relationship Specialty Start Date End Date Alexey Espinosa MD [address] [place] [id number] PCP - General Internal Medicine 03/25/24
== END 2024-08-29 10:32 | disposition home or self-care (01) ==
LOC: HO.RHES 10:00
PROVIDERS: Visit Provider Internal Medicine Rheumatology
DX: M1A.39X1 Chronic gout due to renal impairment, multiple sites, with tophus (tophi) (principal); Z79.899 Other long term (current) drug therapy
CPT/HCPCS: 99214; G2211

== ENCOUNTER → 2024-08-29 09:59 | Outpatient (BNVA) | payer MEDICARE, MEDICAID, SELFPAY | PROVIDERS: Visit Provider Internal Medicine Rheumatology | DX: M1A.39X1 Chronic gout due to renal impairment, multiple sites, with tophus (tophi) (principal); Z79.899 Other long term (current) drug therapy | CPT/HCPCS: 99212 ==

== ENCOUNTER 2024-12-03 10:21 | Outpatient (AMB) | payer MEDICARE, MEDICAID, SELFPAY ==
--- NOTE | 2024-12-03 10:26 | MHC.OFFVIS ---
Vital Signs 12/03/24 10:27 Height 5 ft 10 in Weight 269 lb BMI 38.6 BP 130/90 H Blood Pressure Location Lt brachial Position Sitting Pulse 93 Pulse Source Pulse Oximeter Pulse Oximetry (%) 91 L Oxygen Delivery Method Room Air Intake Visit Reasons: 3 months Intake Note: Patient presents for gout follow up. Allergies No Known Allergies Allergy (Verified 12/03/24 10:27) HPI HPI 3 months: Details: He takes prednisone 40mg and colchicine 1.2mg when he started feeling right toe pain. No other joints involved. He has numbness of his left hand that is positional. Involves all of his fingers mainly his middle finger. [facility] Medical History Achilles tendinitis, left leg Low testosterone Hypertension GERD (gastroesophageal reflux disease) CKD (chronic kidney disease) Gout Social History Alcohol intake: current Alcohol intake frequency: holidays/special occasions only Patient Tobacco Use Status: Never used Tobacco Physical Exam Vital Signs: Last Vital Signs Pulse 93 12/03/24 10:27 BP 130/90 H 12/03/24 10:27 Pulse Ox 91 L 12/03/24 10:27 Oxygen Delivery Method Room Air 12/03/24 10:27 BMI result Body Mass Index 38.6 Const Other: General: Comfortable Skin: No lesions seen MSK: No tenderness of wrists or small joints in hands. Chronic left olecranon bursa is nodular without swelling Good flexion-extension of elbows. Normal range of motion of shoulders. Mild synovitis of left knees without warmth. No tenderness of ankle joint. No midfoot tenderness. No MTP tenderness. Erythema right 1st MTP. No tenderness on palpation. 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 Assessment & Plan Assessment & Plan (1) Numbness of left hand: Code(s): R20.0 - Anesthesia of skin Category: Medical Plan: EMG upper extremity left ordered Return to clinic in 3 (2) Gout: Comment: He is tolerating febuxostat. Frequency of gout flares has reduced. His uric acid goal is less than 5. Rheumatology history: Polyarticular chronic tophaceous gout. He has required multiple courses of prednisone including Depo-Medrol but continues to have recurrent episodes on colchicine 0.6 mg b.i.d. He could not tolerate allopurinol with introduction on 3 occasions as it caused gout flare. CKD stage III (11/2023 labs). Febuxostat 06/2024- Code(s): M10.9 - Gout, unspecified Category: Medical Qualifiers: Chronicity: chronic Gout etiology: due to renal impairment Gout site: multiple sites Presence of tophus: with tophus Qualified Code(s): M1A.39X1 - Chronic gout due to renal impairment, multiple sites, with tophus (tophi) Plan: Labs for disease and drug monitoring ordered Continue febuxostat 40 mg daily. If uric acid level is not less than 5, I will increase febuxostat to 80 mg daily. He will need a new PA Continue colchicine 0.6 mg twice a day He will take for prednisone 40 mg for 1-5 days when he has a flare. Prednisone prescribed. He will also call office to report that he is having a flare. 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 Take prednisone with food. 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
[2024-12-03 10:27] VITALS: BP 130/90; PULSE 93; O2SAT 91; BMI 38.6
--- OUTSIDE RECORDS SUMMARY | 2024-12-03 11:32 | XMS_ITS | Clinical Summary ---
Author Organization [address] [facility] Address [address] [place] [address] Phone Care Team Providers Care Senior Director Of Strategy Name Role Phone Alexey Espinosa MD Primary Care Provider +1- [phone] Encounters Date Type Department Care Team Description 10/29/2024 Lab Requisition [facility] Lab [address] [place] [address] Naresh Lennon PA Testicular hypofunction 10/25/2024 Lab Requisition [facility] Lab [address] [place] [address] Naresh Lennon PA Testicular hypofunction [...] Influencers of Health Screening 07/17/2024 Influenza Vaccine (#1) 2025 RSV Immunization Adult Patie nts (1 - 1-dose 75+ series) 2040 HIB Vaccines Aged Out No longer eligi [...] Diagnosis Comments CBC WITH AUTO DIFFERENTIAL Routine 10/29/2024 8:57 AM EDT Testicular hypofunction CBC AND DIFFERENTIAL Routine 10/29/2024 8:57 AM EDT Testicular hypofunction HEPATIC FUNCTION PANEL Routine 10/25/2024 9:02 AM EDT Testicular hypofunction COMPLETE BLOOD COUNT Routine 10/25/2024 9:02 AM EDT Testicular hypofunction from Last 3 Months Results * (ABNORMAL) CBC auto differential (10/29/2024 8:57 AM EDT) WBC 8.1 4.8 - 10.8 K/mcL LAB HEMETOLOGY METHOD 10/29/2024 1:34 PM EDT [facility] RBC 6.10(H) 4.50 - 5.50 M/mcL LAB HEMETOLOGY METHOD 10/29/2024 1:34 PM EDT [facility] Hemoglobin 18.3(H) 13.5 - 17.5 g/dL LAB HEMETOLOGY METHOD 10/29/2024 1:34 PM EDT [facility] Hematocrit 58.9(H) 42.0 - 54.0 % LAB HEMETOLOGY METHOD 10/29/2024 1:34 PM [facility] MCV 96.4 79.0 - 98.0 FL LAB HEMETOLOGY METHOD 10/29/2024 1:34 PM [facility] MCH 30.0 27.0 - 32.0 pcg LAB HEMETOLOGY METHOD 10/29/2024 1:34 PM [facility] LAB MCHC 31.1(L) 32.0 - 37.0 g/dL LAB HEMETOLOGY METHOD 10/29/2024 1:34 PM [facility] RDW 13.6 11.0 - 15.0 % LAB HEMETOLOGY METHOD 10/29/2024 1:34 PM [facility] Platelets 318 130 - 400 K/mcL LAB HEMETOLOGY METHOD 10/29/2024 1:34 PM [facility] MPV 11.9(H) 7.0 - 11.0 FL LAB HEMETOLOGY METHOD 10/29/2024 1:34 PM [facility] NRBC 0.2 <1.0 % LAB HEMETOLOGY METHOD 10/29/2024 1:34 PM [facility] NRBC Absolute 0.02 <0.10 K/mcL LAB HEMETOLOGY METHOD 10/29/2024 1:34 PM [facility] Neutrophils Relative 88.7 % LAB HEMETOLOGY METHOD 10/29/2024 1:34 PM [facility] Lymphocytes Relative 7.4 % LAB HEMETOLOGY METHOD 10/29/2024 1:34 PM [facility] Monocytes Relative 1.9 % LAB HEMETOLOGY METHOD 10/29/2024 1:34 PM [facility] Eosinophils Relative 1.0 % LAB HEMETOLOGY METHOD 10/29/2024 1:34 PM EDT [facility] Basophils Relative 0.1 % LAB HEMETOLOGY METHOD 10/29/2024 1:34 PM EDT [facility] Immature Granulocytes Relative 0.9 % LAB HEMETOLOGY METHOD 10/29/2024 1:34 PM EDT [facility] Neutrophils Absolute 7.18(H) 1.50 - 7.00 K/mcL LAB HEMETOLOGY METHOD 10/29/2024 1:34 PM EDT [facility] Lymphocytes Absolute 0.60(L) 1.00 - 5.00 K/mcL LAB HEMETOLOGY METHOD 10/29/2024 1:34 PM EDT [facility] Monocytes Absolute 0.15(L) 0.20 - 1.00 K/mcL LAB HEMETOLOGY METHOD 10/29/2024 1:34 PM EDT [facility] Eosinophils Absolute 0.08 0.00 - 0.50 K/mcL LAB HEMETOLOGY METHOD 10/29/2024 1:34 PM EDT [facility] Basophils Absolute 0.01 0.00 - 0.20 K/mcL LAB HEMETOLOGY METHOD 10/29/2024 1:34 PM EDT [facility] Immature Granulocytes Absolute 0.07(H) 0.00 - 0.03 K/mcL LAB HEMETOLOGY METHOD 10/29/2024 1:34 PM EDT [facility] Blood Venous blood specimen / Unknown 10/29/2024 8:57 AM EDT 10/29/2024 1:05 PM EDT us Naresh MUNOZ LAB BLOOD ORDERABLES Final Res ult [facility] [address] [place] [address], * (ABNORMAL) Complete blood count (10/25/2024 9:02 AM EDT) [facility] WBC 11.2(H) 4.8 - 10.8 K/mcL LAB HEMETOLOGY METHOD 10/25/2024 12:50 PM [facility] RBC 5.60(H) 4.50 - 5.50 M/mcL LAB HEMETOLOGY METHOD [facility] Hemoglobin 17.0 13.5 - 17.5 g/dL LAB HEMETOLOGY METHOD 10/25/2024 12:50 PM [facility] Hematocrit 55.0(H) 42.0 - 54.0 % LAB HEMETOLOGY METHOD 10/25/2024 12:50 PM [facility] MCV 98.0 79.0 - 98.0 FL LAB HEMETOLOGY METHOD 10/25/2024 12:50 PM [facility] MCH 30.3 27.0 - 32.0 pcg LAB HEMETOLOGY METHOD 10/25/2024 12:50 PM [facility] MCHC 30.9(L) 32.0 - 37.0 g/dL LAB HEMETOLOGY METHOD 10/25/2024 12:50 PM [facility] RDW 13.6 11.0 - 15.0 % LAB HEMETOLOGY METHOD 10/25/2024 12:50 PM [facility] Platelets 311 130 - 400 K/mcL LAB HEMETOLOGY METHOD 10/25/2024 12:50 PM [facility] MPV 11.8(H) 7.0 - 11.0 FL LAB HEMETOLOGY METHOD 10/25/2024 12:50 PM [facility] NRBC 0.0 <1.0 % LAB HEMETOLOGY METHOD [facility] NRBC Absolute 0.00 <0.10 K/mcL LAB HEMETOLOGY METHOD 10/25/2024 12:50 PM EDT [facility] Blood Venous blood specimen / Unknown 10/25/2024 9:02 AM EDT 10/25/2024 12:19 PM EDT us Naresh MUNOZ LAB BLOOD ORDERABLES Final Res ult [facility] [address] [place] [address], [place] [phone] * (ABNORMAL) Hepatic function panel (10/25/2024 9:02 AM EDT) Total Protein 7.6 6.0 - 8.0 g/dL LAB CHEMISTRY METHOD 10/25/2024 3:25 PM T [facility] Albumin 3.5 3.2 - 5.0 g/dL LAB CHEMISTRY METHOD 10/25/2024 3:25 PM EDT [facility] Total Bilirubin 0.4 0.0 - 1.4 mg/dL LAB CHEMISTRY METHOD 10/25/2024 3:25 PM T [facility] Bilirubin, Direct 0.1 0.0 - 0.3 mg/dL LAB CHEMISTRY METHOD 10/25/2024 3:25 PM T [facility] Bilirubin, Indirect 0.3 0.0 - 1.1 mg/dL LAB CHEMISTRY METHOD 10/25/2024 3:25 PM T [facility] ALT (SGPT) 64(H) 10 - 60 unit/L LAB CHEMISTRY METHOD 10/25/2024 3:25 PM [facility] AST (SGOT) 26 10 - 42 unit/L LAB CHEMISTRY METHOD 10/25/2024 3:25 PM [facility] Alkaline Phosphatase 85 42 - 121 unit/L LAB CHEMISTRY METHOD 10/25/2024 3:25 PM T [facility] Blood Venous blood specimen / Unknown 10/25/2024 9:02 AM EDT 10/25/2024 12:19 PM EDT us Naresh MUNOZ LAB BLOOD ORDERABLES Final Res ult [facility] [address] [place] [address], [place] [phone] from Last 3 Months Insurance MEDICARE MEDICAID - [place] Care Teams Senior Director Of Strategy Relationship Specialty Start Date End Date Alexey Espinosa MD [address] [place] [phone] PCP - General Internal Medicine 07/16/24
--- OUTSIDE RECORDS SUMMARY | 2024-12-03 11:32 | XMS_ITS | Clinical Summary ---
Author Organization [facility], Address [address] [place] [address] [place] [address] Phone Care Team Providers Care Professional System Administrator Name Role Phone Alexey Espinosa MD Primary Care Provider +1- [phone] Social History Tobacco Use Types Packs/Day Years [...] Cancer Screening: Sigmoidoscopy 2014 Influenza Vaccine (#1) 2025 Insurance Medicare Medicaid [place] Care Teams Professional System Administrator Relationship Specialty Start Date End Date Alexey Espinsoa MD [address] [place] [phone] PCP - General Internal Medicine 03/25/24
== END 2024-12-03 11:39 | disposition home or self-care (01) ==
PROVIDERS: PCP Internal Medicine; Visit Provider Internal Medicine Rheumatology
DX: R20.0 Anesthesia of skin (principal); M1A.39X1 Chronic gout due to renal impairment, multiple sites, with tophus (tophi); Z79.899 Other long term (current) drug therapy
CPT/HCPCS: 99214; G2211

== ENCOUNTER → 2024-12-03 10:21 | Outpatient (BNVA) | payer MEDICARE, MEDICAID, SELFPAY | PROVIDERS: Visit Provider Internal Medicine Rheumatology | DX: M1A.39X1 Chronic gout due to renal impairment, multiple sites, with tophus (tophi) (principal); R20.0 Anesthesia of skin; Z79.899 Other long term (current) drug therapy | CPT/HCPCS: 99212 ==

== ENCOUNTER 2025-04-21 10:50 | Outpatient (REF) | payer MEDICARE, MEDICAID, SELFPAY ==
[2025-04-21 13:19] LABS: MANUAL DIFF FLAG NO
[2025-04-21 13:46] LABS: Hematocrit 46.9 % (42.0-52.0); Hemoglobin 14.9 g/dl (14.0-18.0); Imm Gran Abs Auto 0.11 X10*3/uL (0.00-0.03); Imm Gran Pct Auto 1.4 % (0.0-0.4); Lymphocytes Absolute Auto 1.3 X10*3/uL (1.2-4.9); Mean Corpuscular HGB Conc 31.8 g/dl (31.0-36.0); Mean Corpuscular Hemoglobin 30.2 pg (27.0-33.0); Mean Corpuscular Volume 95.1 fL (80.0-98.0); NRBC Abs Auto 0.060 X10*3/uL (0.0-0.012); NRBC Pct Auto 0.8 /100WBC (0.0-0.2); Platelet Count 487 X10*3/uL (160-400); Red Blood Count 4.93 X10*6/uL (4.60-5.80); White Blood Count 7.9 X10*3/uL (4.8-10.8)
[2025-04-21 14:01] LABS: Alanine Aminotransferase 46 U/L (0-40); Aspartate Amino Transferase 38 U/L (5-37); Estimated Glomerular Filt Rate 38; Uric Acid 8.7 mg/dL (3.4-7.0)
--- OUTSIDE RECORDS SUMMARY | 2025-04-21 14:04 | XMS_ITS | Encounter Summary ---
Demographics Address [address] [place] [address] Home Phone Mobile Phone Home Phone Email Address Email Address Email Address Preferred Language Unknown Marital Status Unknown Scientologist Affiliation Unknown Race Black or Edda rican Ethnic Group Unknown Author Organization [facility] Address [address] [place] [address] Care Team Providers Care Real Estate Assistant Name Role Phone Physician, Pcp Unknown Primary Care Provider Carmen vailable Encounter Details Date Type Department Care Team (Late st Contact Info) Description 12/11/[address] [facility] Lab [address] [facility] [place] [address] Naresh Lennon PA [address] [place] [phone] Testicular hypofunction Social History Tobacco Use Types [...] Diagnosis Comments CBC WITH AUTO DIFFERENTIAL Routine 12/11/2024 1:14 PM EDT Testicular hypofunction CBC AND DIFFERENTIAL Routine 12/11/2024 1:14 PM EDT Testicular hypofunction documented in this encounter Results * (ABNORMAL) CBC auto differential (12/11/2024 1:14 PM EDT) WBC 5.6 4.8 - 10.8 K/[facility] LAB HEMETOLOGY METHOD 12/11/2024 6:16 PM [facility] RBC 5.90(H) 4.50 - 5.50 M/mcL LAB HEMETOLOGY METHOD 12/11/2024 6:16 PM [facility] Hemoglobin 17.7(H) 13.5 - 17.5 g/dL LAB HEMETOLOGY METHOD 12/11/2024 6:16 PM [facility] Hematocrit 56.3(H) 42.0 - 54.0 % LAB HEMETOLOGY METHOD 12/11/2024 6:16 PM [facility] LAB MCV 95.9 79.0 - 98.0 FL LAB HEMETOLOGY METHOD 12/11/2024 6:16 PM [facility] MCH 30.2 27.0 - 32.0 pcg LAB HEMETOLOGY METHOD 12/11/2024 6:16 PM [facility] MCHC 31.4(L) 32.0 - 37.0 g/dL LAB HEMETOLOGY METHOD 12/11/2024 6:16 PM [facility] RDW 14.5 11.0 - 15.0 % LAB HEMETOLOGY METHOD 12/11/2024 6:16 PM [facility] Platelets 229 130 - 400 K/mcL LAB HEMETOLOGY METHOD 12/11/2024 6:16 PM [facility] MPV 12.4(H) 7.0 - 11.0 FL LAB HEMETOLOGY METHOD 12/11/2024 6:16 PM [facility] NRBC 0.0 <1.0 % LAB HEMETOLOGY METHOD 12/11/2024 6:16 PM [facility] NRBC Absolute 0.00 <0.10 K/mcL LAB HEMETOLOGY METHOD 12/11/2024 6:16 PM [facility] Neutrophils Relative 72.6 % LAB HEMETOLOGY METHOD 12/11/2024 6:16 PM EDT [facility] Lymphocytes Relative 17.2 % LAB HEMETOLOGY METHOD 12/11/2024 6:16 PM EDT [facility] Monocytes Relative 8.3 % LAB HEMETOLOGY METHOD 12/11/2024 6:16 PM [facility] Eosinophils Relative 0.9 % LAB HEMETOLOGY METHOD 12/11/2024 6:16 PM [facility] Basophils Relative 0.5 % LAB HEMETOLOGY METHOD 12/11/2024 6:16 PM [facility] Immature Granulocytes Relative 0.5 % LAB HEMETOLOGY METHOD 12/11/2024 6:16 PM [facility] Neutrophils Absolute 4.09 1.50 - 7.00 K/mcL LAB HEMETOLOGY METHOD 12/11/2024 6:16 PM [facility] Lymphocytes Absolute 0.97(L) 1.00 - 5.00 K/mcL LAB HEMETOLOGY METHOD 12/11/2024 6:16 PM [facility] Monocytes Absolute 0.47 0.20 - 1.00 K/mcL LAB HEMETOLOGY METHOD 12/11/2024 6:16 PM [facility] Eosinophils Absolute 0.05 0.00 - 0.50 K/mcL LAB HEMETOLOGY METHOD 12/11/2024 6:16 PM [facility] Basophils Absolute 0.03 0.00 - 0.20 K/mcL LAB HEMETOLOGY METHOD 12/11/2024 6:16 PM [facility] Immature Granulocytes Absolute 0.03 0.00 - 0.03 K/mcL LAB HEMETOLOGY METHOD 12/11/2024 6:16 PM [facility] Blood Venous blood specimen / Unknown 12/11/2024 1:14 PM EDT 12/11/2024 5:59 PM EDT us Naresh MUNOZ LAB BLOOD ORDERABLES Final Res ult [facility] ([facility]) [facility] LAB [address] [place] [address], documented in this encounter Visit Diagnoses Diagnosis Testicular hypofunction Other testicular hypofunction documented in this encounter Care Teams Real Estate Assistant Relationship Specialty Start Date End Date Physician, Pcp Unknown PCP - General 01/26/25 documented as of this encounter
--- OUTSIDE RECORDS SUMMARY | 2025-04-21 14:04 | XMS_ITS | Encounter Summary ---
Demographics Address [address] [place] [address] Home Phone Mobile Phone Home Phone Email Address Email Address Email Address Preferred Language Unknown Marital Status Unknown Zoroastrian Affiliation Unknown Race Black or Edda rican Ethnic Group Unknown Author Organization [facility] Address [address] [place] [address] Care Team Providers Care Machine Group Leader Name Role Phone Physician, Pcp Unknown Primary Care Provider Carmen vailable Encounter Details Date Type Department Care Team (Late st Contact Info) Description 10/29/2024 Lab Requisition [facility] - Main Lab [address] [facility] [place] [address] Naresh Lennon PA [address] [place] [phone] Testicular hypofunction Social History Tobacco Use Types [...] Routine 10/29/2024 8:57 AM EDT Testicular hypofunction documented in this encounter Results * (ABNORMAL) CBC auto differential (10/29/2024 8:57 AM EDT) WBC 8.1 4.8 - 10.8 K/[facility] LAB HEMETOLOGY METHOD 10/29/2024 1:34 PM [facility] RBC 6.10(H) 4.50 - 5.50 M/mcL LAB HEMETOLOGY METHOD 10/29/2024 1:34 PM [facility] Hemoglobin 18.3(H) 13.5 - 17.5 g/dL LAB HEMETOLOGY METHOD 10/29/2024 1:34 PM [facility] LAB Hematocrit 58.9(H) 42.0 - 54.0 % LAB HEMETOLOGY METHOD 10/29/2024 1:34 PM [facility] LAB MCV 96.4 79.0 - 98.0 FL LAB HEMETOLOGY METHOD 10/29/2024 1:34 PM [facility] LAB MCH 30.0 27.0 - 32.0 pcg LAB HEMETOLOGY METHOD 10/29/2024 1:34 PM [facility] LAB MCHC 31.1(L) 32.0 - 37.0 g/dL LAB HEMETOLOGY METHOD 10/29/2024 1:34 PM [facility] LAB RDW 13.6 11.0 - 15.0 % LAB HEMETOLOGY METHOD 10/29/2024 1:34 PM [facility] LAB Platelets 318 130 - 400 K/mcL LAB HEMETOLOGY METHOD 10/29/2024 1:34 PM [facility] LAB MPV 11.9(H) 7.0 - 11.0 FL LAB HEMETOLOGY METHOD 10/29/2024 1:34 PM [facility] NRBC 0.2 <1.0 % LAB HEMETOLOGY METHOD 10/29/2024 1:34 PM [facility] NRBC Absolute 0.02 <0.10 K/mcL LAB HEMETOLOGY METHOD 10/29/2024 1:34 PM [facility] Neutrophils Relative 88.7 % LAB HEMETOLOGY METHOD 10/29/2024 1:34 PM [facility] Lymphocytes Relative 7.4 % LAB HEMETOLOGY METHOD 10/29/2024 1:34 PM [facility] Monocytes Relative 1.9 % LAB HEMETOLOGY METHOD 10/29/2024 1:34 PM [facility] Eosinophils Relative 1.0 % LAB HEMETOLOGY METHOD 10/29/2024 1:34 PM [facility] Basophils Relative 0.1 % LAB HEMETOLOGY METHOD 10/29/2024 1:34 PM [facility] Immature Granulocytes Relative 0.9 % LAB HEMETOLOGY METHOD 10/29/2024 1:34 PM [facility] Neutrophils Absolute 7.18(H) 1.50 - 7.00 K/mcL LAB HEMETOLOGY METHOD 10/29/2024 1:34 PM [facility] Lymphocytes Absolute 0.60(L) 1.00 - 5.00 K/mcL LAB HEMETOLOGY METHOD 10/29/2024 1:34 PM [facility] Monocytes Absolute 0.15(L) 0.20 - 1.00 K/mcL LAB HEMETOLOGY METHOD 10/29/2024 1:34 PM [facility] Eosinophils Absolute 0.08 0.00 - 0.50 K/mcL LAB HEMETOLOGY METHOD 10/29/2024 1:34 PM [facility] Basophils Absolute 0.01 0.00 - 0.20 K/mcL LAB HEMETOLOGY METHOD 10/29/2024 1:34 PM [facility] Immature Granulocytes Absolute 0.07(H) 0.00 - 0.03 K/mcL LAB HEMETOLOGY METHOD 10/29/2024 1:34 PM [facility] Blood Venous blood specimen / Unknown 10/29/2024 8:57 AM EDT 10/29/2024 1:05 PM EDT us Naresh MUNOZ LAB BLOOD ORDERABLES Final Res ult [facility] [address] [place] [address], [place] [phone] documented in this encounter Visit Diagnoses Diagnosis Testicular hypofunction Other testicular hypofunction documented in this encounter Care Teams Machine Group Leader Relationship Specialty Start Date End Date Physician, Pcp Unknown PCP - General 01/26/25 documented as of this encounter
--- OUTSIDE RECORDS SUMMARY | 2025-04-21 14:04 | XMS_ITS | Clinical Summary ---
Author Organization [facility] Address [address] [place] [address] Phone Care Team Providers Care Hop Strainer Name Role Phone Physician, Pcp Unknown Primary Care Provider Carmen vailable Allergies No known active allergies Medications No known medications Active Problems No known active problems Encounters Date Type Department Care Team Description 03/27/2025 12:17 PM EST - 03/27/2025 11:59 PM EST Hospital Encounter [facility] [address] [place] [phone] Strain of muscle, fascia and tendon at neck level, initial encounter; Strain of muscle and tendon of back wall of thorax, initial encounter; Strain of muscle, fascia and tendon of lower back, initial encounter; Strain of unspecified muscles, fascia and tendons at forearm level, right arm, initial encounter; Strain of unspecified muscle, fascia and tendon at wrist and hand level, left hand, initial encounter; Strain of other specified muscles, fascia and tendons at wrist and hand level, left hand, initial encounter Discharge Disposition: Home or Self Care 03/27/2025 12:16 PM EST - 03/27/2025 11:59 PM EST Hospital Encounter [facility] [address] [place] [phone] Strain of muscle, fascia and tendon at neck level, initial encounter; Strain of muscle and tendon of back wall of thorax, initial encounter; Strain of muscle, fascia and tendon of lower back, initial encounter; Strain of unspecified muscles, fascia and tendons at forearm level, right arm, initial encounter; Strain of unspecified muscle, fascia and tendon at wrist and hand level, left hand, initial encounter; Strain of other specified muscles, fascia and tendons at wrist and hand level, left hand, initial encounter Discharge Disposition: Home or Self Care 03/27/2025 12:15 PM EST - 03/27/2025 11:59 PM EST Hospital Encounter [facility] [address] [place] [phone] Strain of muscle, fascia and tendon at neck level, initial encounter; Strain of muscle and tendon of back wall of thorax, initial encounter; Strain of muscle, fascia and tendon of lower back, initial encounter; Strain of unspecified muscles, fascia and tendons at forearm level, right arm, initial encounter; Strain of unspecified muscle, fascia and tendon at wrist and hand level, left hand, initial encounter; Strain of other specified muscles, fascia and tendons at wrist and hand level, left hand, initial encounter Discharge Disposition: Home or Self Care 03/27/2025 12:14 PM EST - 03/27/2025 11:59 PM EST Hospital Encounter [facility] [address] [place] [phone] Strain of muscle, fascia and tendon at neck level, initial encounter; Strain of muscle and tendon of back wall of thorax, initial encounter; Strain of muscle, fascia and tendon of lower back, initial encounter; Strain of unspecified muscles, fascia and tendons at forearm level, right arm, initial encounter; Strain of unspecified muscle, fascia and tendon at wrist and hand level, left hand, initial encounter; Strain of other specified muscles, fascia and tendons at wrist and hand level, left hand, initial encounter Discharge Disposition: Home or Self Care 03/27/2025 12:13 PM EST - 03/27/2025 11:59 PM EST Hospital Encounter [facility] [address] [place] [phone] Strain of muscle, fascia and tendon at neck level, initial encounter; Strain of muscle and tendon of back wall of thorax, initial encounter; Strain of muscle, fascia and tendon of lower back, initial encounter; Strain of unspecified muscles, fascia and tendons at forearm level, right arm, initial encounter; Strain of unspecified muscle, fascia and tendon at wrist and hand level, left hand, initial encounter; Strain of other specified muscles, fascia and tendons at wrist and hand level, left hand, initial encounter Discharge Disposition: Home or Self Care 01/30/2025 7:41 AM EDT - 01/30/2025 11:59 PM EDT Hospital Encounter [facility] Xray [address] [place] [phone] Pain Discharge Disposition: Home or Self Care 01/26/2025 1:22 AM EDT - 01/26/2025 5:13 AM EDT Emergency [facility] Emergency [address] [place] [phone] Displaced fracture (avulsion) of lateral epicondyle of unspecified humerus, initial encounter for closed fracture (Primary Dx); Closed displaced fracture of head of right radius, initial encounter; Fall on or from stairs or steps, initial encounter Discharge Disposition: Home or Self Care from Last 3 Months Medical History Medical History Date Comments Gout 07/13/2011 DX:Gout Family hx of colon cancer 08/17/2011 DX:Fam judy hx of colon cancer Hypertension Family History Medical History Relation Name Comments Prostate cancer Father at age 74 from prostate Ca Prostate cancer Maternal Grandfather Colon cancer Mother at age 30 from colon ca Colon cancer Uncle 1 at age 58 Relation Name Status Comments Father Maternal Grandfather Mother Uncle 1 Uncle 2 Social History Tobacco Use Types Packs/Day Years Used Date Smoking Tobacco: Never Smokeless Tobacco: Never Alcohol Use Standard Drinks/Week Comments No 0 (1 standard drink = 0.6 oz pur e alcohol) Sex and Gender Information Value Date Recorded Sex Assigned at Not on file Legal Sex Male 4:16 PM EST Gender Identity Not on file Sexual Orientation Not on file Obstetrics History Last Filed Vital Signs Vital Sign Reading Time Taken Comments Blood Pressure 143/89 01/26/2025 3:33 AM EDT Pulse 106 01/26/2025 3:33 AM EDT Temperature 36.6 C (97.9 F) 01/26/2025 3:33 AM EDT Respiratory Rate 18 01/26/2025 3:33 AM EDT Oxygen Saturation 96% 01/26/2025 3:33 AM EDT Inhaled Oxygen Concentration - - Weight 116 kg (255 lb) 01/26/2025 1:35 AM EDT Height 177.8 cm (5' 10 ) 01/26/2025 1:35 AM EDT Body Mass Index 36.59 01/26/2025 1:35 AM EDT Plan of Treatment Health Maintenance Due Date Last Done Comments Colorectal Cancer Screening: Colonoscopy 1965 Hepatitis B Vaccines (1 of 3 - 19+ 3-dose series) 1984 Pneumococcal Vaccine: 50+ Years (1 of 1 - PCV) 12/02/2015 Zoster Vaccines (1 of 2) 12/02/2015 Depression Screening 05/22/2024 DTaP,Tdap,and Td Vaccines (3 - Td or Tdap) 05/26/2024 05/26/2014, 07/13/2011 Cholesterol Screening (Lipid Panel) 07/17/2024 HIV Screening 07/17/2024 Hepatitis C Screening 07/17/2024 Medicare Annual Wellness Visit 07/17/2024 Social Influencers of Health Screening 07/17/2024 Hypertension/CHF/CAD Annual BMP Blood Test 12/12/2024 COVID-19 Vaccine (1 - 2024-2 6 season) 2025 Influenza Vaccine (#1) 2025 RSV Immunization Adult Patients (1 - 1-dose 75+ series) 2040 HIB [...] to complete this topic RSV Immunization Patients Under 20 months Aged Out No longer eligible b ased on patient's age to complete this topic Varicella Vaccines Aged Out No longer eligible based on patient's age to complete this topic Procedures Procedure Name Priority Date/Time Associated Diagnosis Comments XR HAND 3+ VIEWS LEFT Routine 03/27/2025 1:05 PM EST Strain of muscle, fascia and tendon at neck level, initial encounter Strain of muscle and tendon of back wall of thorax, initial encounter Strain of muscle, fascia and tendon of lower back, initial encounter Strain of unspecified muscles, fascia and tendons at forearm level, right arm, initial encounter Strain of unspecified muscle, fascia and tendon at wrist and hand level, left hand, initial encounter Strain of other specified muscles, fascia and tendons at wrist and hand level, left hand, initial encounter XR WRIST 3+ VIEWS LEFT Routine 03/27/2025 1:05 PM EST Strain of muscle, fascia and tendon at neck level, initial encounter Strain of muscle and tendon of back wall of thorax, initial encounter Strain of muscle, fascia and tendon of lower back, initial encounter Strain of unspecified muscles, fascia and tendons at forearm level, right arm, initial encounter Strain of unspecified muscle, fascia and tendon at wrist and hand level, left hand, initial encounter Strain of other specified muscles, fascia and tendons at wrist and hand level, left hand, initial encounter XR LUMBAR SPINE 2-3 VIEWS Routine 03/27/2025 1:04 PM EST Strain of muscle, fascia and tendon at neck level, initial encounter Strain of muscle and tendon of back wall of thorax, initial encounter Strain of muscle, fascia and tendon of lower back, initial encounter Strain of unspecified muscles, fascia and tendons at forearm level, right arm, initial encounter Strain of unspecified muscle, fascia and tendon at wrist and hand level, left hand, initial encounter Strain of other specified muscles, fascia and tendons at wrist and hand level, left hand, initial encounter XR THORACIC SPINE 2 VIEWS Routine 03/27/2025 1:04 PM EST Strain of muscle, fascia and tendon at neck level, initial encounter Strain of muscle and tendon of back wall of thorax, initial encounter Strain of muscle, fascia and tendon of lower back, initial encounter Strain of unspecified muscles, fascia and tendons at forearm level, right arm, initial encounter Strain of unspecified muscle, fascia and tendon at wrist and hand level, left hand, initial encounter Strain of other specified muscles, fascia and tendons at wrist and hand level, left hand, initial encounter XR CERVICAL SPINE 4-5 VIEWS Routine 03/27/2025 1:03 PM EST Strain of muscle, fascia and tendon at neck level, initial encounter Strain of muscle and tendon of back wall of thorax, initial encounter Strain of muscle, fascia and tendon of lower back, initial encounter Strain of unspecified muscles, fascia and tendons at forearm level, right arm, initial encounter Strain of unspecified muscle, fascia and tendon at wrist and hand level, left hand, initial encounter Strain of other specified muscles, fascia and tendons at wrist and hand level, left hand, initial encounter XR ELBOW 3+ VIEWS RIGHT Routine 01/30/2025 10:51 AM EDT Pain HC APPLICATION SPLINT/CAST/STRAP Routine 01/26/2025 4:46 AM EDT CO APPLICATION OF LONG ARM SPLINT Routine 01/26/2025 4:46 AM EDT XR HUMERUS 2+ VIEWS RIGHT STAT 01/26/2025 2:52 AM EDT XR WRIST 3+ VIEWS RIGHT STAT 01/26/2025 2:52 AM EDT XR FOREARM 2 VIEWS RIGHT STAT 01/26/2025 2:52 AM EDT XR KNEE 3 VIEWS LEFT STAT 01/26/2025 2:21 AM EDT XR ELBOW 3+ VIEWS RIGHT STAT 01/26/2025 2:[address] HEAD WO CONTRAST STAT 01/26/2025 1 :[address] CERVICAL SPINE WO CONTRAST STAT 01/26/2025 1:58 AM EDT from Last 3 Months Results * XR Hand 3+ Views Left (03/27/2025 1:05 PM EST) Anatomical Region Laterality Modality Upper Extremities, Hand Left [facility] 03/28/2025 12:5 3 PM EST Impressions 03/28/2025 12:57 PM EST 1. No acute fracture or subluxation. 2. Widening of the scapholunate interval. 3. Erosive changes in the distal pole of the navicular and perhaps the radial styloid. 4. Soft tissue swelling and nodularity. 5. No erosive changes at the base of the metacarpals or at the MCP joints. 6. The pattern is not typical of osteoarthritis. Erosive arthropathy possible. Correlate with any clinical evidence of gout. -------- FINAL REPORT -------- Dictated By: Vlad Batista Dictated Date: 03/28/2025 12:53 ET Assigned Physician: Vlad Batista Reviewed and Electronically Signed By: Vlad Batista Signed Date: 03/28/2025 12:57 ET Workstation ID: [id number] Transcribed By: Self Edit Transcribed Date: 03/28/2025 12:53 ET Narrative 03/28/2025 12:57 PM EST EXAMINATION: LEFT WRIST LEFT HAND CLINICAL INFORMATION: Pain COMPARISON: None. TECHNIQUE: 3 views left wrist 3 views left hand FINDINGS: Left breast: There is no acute fracture or subluxation. There is no suspicious focal lesion. There is widening of the scapholunate interval. There are some erosive changes in the distal pole of the navicular and perhaps the radial styloid. Some minor cystic or erosive changes in the radial aspect of the hamate. No abnormal soft tissue calcification. There is soft tissue swelling and some nodularity in the visualized soft tissues. This could be related to partially mineralized tophi or synovial thickening. Left hand: The study is limited by positioning of the fingers which are held in palmar flexion. No acute fracture or subluxation. No suspicious focal lesion or periosteal new bone. The IP joints are not well evaluated. There are no erosive changes at the base of the metacarpals or at the MCP joints. There is soft tissue swelling. Procedure Note Vlad Batista MD - 03/28/2025 EXAMINATION: LEFT WRIST LEFT HAND CLINICAL INFORMATION: Pain COMPARISON: None. TECHNIQUE: 3 views left wrist 3 views left hand FINDINGS: Left breast: There is no acute fracture or subluxation. There is no suspicious focallesion. There is widening of the scapholunate interval. There are some erosivechanges in the distal pole of the navicular and perhaps the radialstyloid. Some minor cystic or erosive changes in the radial aspect of the hamate. No abnormal soft tissue calcification. There is soft tissue swelling and some nodularity in the visualized softtissues. This could be related to partially mineralized tophi or synovialthickening. Left hand: The study is limited by positioning of the fingers which are held inpalmar flexion. No acute fracture or subluxation. No suspicious focal lesion or periosteal new bone. The IP joints are not well evaluated. There are no erosive changes at thebase of the metacarpals or at the MCP joints. There is soft tissueswelling. IMPRESSION: 1. No acute fracture or subluxation. 2. Widening of the scapholunate interval. 3. Erosive changes in the distal pole of the navicular and perhaps theradial styloid. 4. Soft tissue swelling and nodularity. 5. No erosive changes at the base of the metacarpals or at the MCPjoints. 6. The pattern is not typical of osteoarthritis. Erosive arthropathypossible. Correlate with any clinical evidence of gout. -------- FINAL REPORT -------- Dictated By: Vlad Batista Dictated Date: 03/28/2025 12:53 ET Assigned Physician: Vlad Batista Reviewed and Electronically Signed By: Vlad Batista Signed Date: 03/28/2025 12:57 ET Workstation ID: [id number] Transcribed By: Self Edit Transcribed Date: 03/28/2025 12:53 ET us Nic Caballero MD IMG XR PROCEDURES Final Resu lt * XR Wrist 3+ Views Left (03/27/2025 1:05 PM EST) Anatomical Region Laterality Modality Upper Extremities, Wrist Left Radiogr aphic Imaging 03/28/2025 12:5 3 PM EST Impressions 03/28/2025 12:57 PM EST 1. No acute fracture or subluxation. 2. Widening of the scapholunate interval. 3. Erosive changes in the distal pole of the navicular and perhaps the radial styloid. 4. Soft tissue swelling and nodularity. 5. No erosive changes at the base of the metacarpals or at the MCP joints. 6. The pattern is not typical of osteoarthritis. Erosive arthropathy possible. Correlate with any clinical evidence of gout. -------- FINAL REPORT -------- Dictated By: Vlad Batista Dictated Date: 03/28/2025 12:53 ET Assigned Physician: Vlad Batista Reviewed and Electronically Signed By: Vlad Batista Signed Date: 03/28/2025 12:57 ET Workstation ID: [id number] Transcribed By: Self Edit Transcribed Date: 03/28/2025 12:53 ET Narrative 03/28/2025 12:57 PM EST EXAMINATION: LEFT WRIST LEFT HAND CLINICAL INFORMATION: Pain COMPARISON: None. TECHNIQUE: 3 views left wrist 3 views left hand FINDINGS: Left breast: There is no acute fracture or subluxation. There is no suspicious focal lesion. There is widening of the scapholunate interval. There are some erosive changes in the distal pole of the navicular and perhaps the radial styloid. Some minor cystic or erosive changes in the radial aspect of the hamate. No abnormal soft tissue calcification. There is soft tissue swelling and some nodularity in the visualized soft tissues. This could be related to partially mineralized tophi or synovial thickening. Left hand: The study is limited by positioning of the fingers which are held in palmar flexion. No acute fracture or subluxation. No suspicious focal lesion or periosteal new bone. The IP joints are not well evaluated. There are no erosive changes at the base of the metacarpals or at the MCP joints. There is soft tissue swelling. Procedure Note Vlad Batista MD - 03/28/2025 EXAMINATION: LEFT WRIST LEFT HAND CLINICAL INFORMATION: Pain COMPARISON: None. TECHNIQUE: 3 views left wrist 3 views left hand FINDINGS: Left breast: There is no acute fracture or subluxation. There is no suspicious focallesion. There is widening of the scapholunate interval. There are some erosivechanges in the distal pole of the navicular and perhaps the radialstyloid. Some minor cystic or erosive changes in the radial aspect of the hamate. No abnormal soft tissue calcification. There is soft tissue swelling and some nodularity in the visualized softtissues. This could be related to partially mineralized tophi or synovialthickening. Left hand: The study is limited by positioning of the fingers which are held inpalmar flexion. No acute fracture or subluxation. No suspicious focal lesion or periosteal new bone. The IP joints are not well evaluated. There are no erosive changes at thebase of the metacarpals or at the MCP joints. There is soft tissueswelling. IMPRESSION: 1. No acute fracture or subluxation. 2. Widening of the scapholunate interval. 3. Erosive changes in the distal pole of the navicular and perhaps theradial styloid. 4. Soft tissue swelling and nodularity. 5. No erosive changes at the base of the metacarpals or at the MCPjoints. 6. The pattern is not typical of osteoarthritis. Erosive arthropathypossible. Correlate with any clinical evidence of gout. -------- FINAL REPORT -------- Dictated By: Vlad Batista Dictated Date: 03/28/2025 12:53 ET Assigned Physician: Vlad Batista Reviewed and Electronically Signed By: Vlad Batista Signed Date: 03/28/2025 12:57 ET Workstation ID: [id number] Transcribed By: Self Edit Transcribed Date: 03/28/2025 12:53 ET us Nic Caballero MD IMG XR PROCEDURES Final Resu lt * XR Lumbar Spine 2-3 Views (03/27/2025 1:04 PM EST) Anatomical Region Laterality Modality Spine, L-spine Radiographic Geovanna ging 03/28/2025 12:5 7 PM EST Impressions 03/28/2025 1:07 PM EST 1. No acute fracture or subluxation. 2. Degenerative changes in the cervical spine. 3. Close attention to the numbering necessary if intervention is undertaken. -------- FINAL REPORT -------- Dictated By: Vlad Batista Dictated Date: 03/28/2025 12:57 ET Assigned Physician: Vlad Batista Reviewed and Electronically Signed By: Vlad Batista Signed Date: 03/28/2025 13:07 ET Workstation ID: [id number] Transcribed By: Self Edit Transcribed Date: 03/28/2025 12:57 ET Narrative 03/28/2025 1:07 PM EST EXAMINATION: CERVICAL SPINE THORACIC SPINE LUMBAR SPINE CLINICAL INFORMATION: Neck pain Back pain COMPARISON: Parasagittal reformatted images of the cervical spine 01/26/25 Radiographs of the thoracic spine 10/10/07 Radiographs of the lumbar spine 10/10/07 TECHNIQUE: 5 views of cervical spine Frontal and lateral views of the thoracic spine 3 views of the lumbar spine FINDINGS: Cervical spine: The anatomy inferior to mid C5 is partially obscured in the lateral projection. Attempt at a lateral view in the swimmer's projection is limited. No suspicious prevertebral soft tissue abnormality. There is no acute fracture or subluxation demonstrated. No suspicious focal lesion or loss of volume. There is moderate narrowing of the discs between C3 and C7. There is endplate sclerosis and there are marginal osteophytes. There is narrowing of the facets. There is some uncovertebral joint spurring included on the right at C5/C6. There are prominent transverse processes at C7 bilaterally. There is mild bony foraminal narrowing on the right at C3/C4 and C4/C5 and moderate bony foraminal narrowing on the right at C5/C6 and C6/C7. There is moderate bony foraminal narrowing on the left at C3/C4 and C4/C5. Thoracic spine: I suspect 11 rib-bearing vertebrae. There is no acute fracture or subluxation. No significant loss of volume. The endplates are sharply defined. The pedicles appear intact. There is no suspicious paraspinal abnormality. Lumbar spine: There are 6 nonrib-bearing vertebrae. Numbering will reflect that the lowest disc as L5/S1 and assuming rudimentary ribs at T12. There is no acute fracture, subluxation, suspicious focal lesion or loss of volume. Trace disc narrowing in the upper lumbar spine. The pedicles appear intact. No definite erosions involving the SI joints. No suspicious paraspinal abnormality. Procedure Note Vlad Batista MD - 03/28/2025 EXAMINATION: CERVICAL SPINE THORACIC SPINE LUMBAR SPINE CLINICAL INFORMATION: Neck pain Back pain COMPARISON: Parasagittal reformatted images of the cervical spine 01/26/25 Radiographs of the thoracic spine 10/10/07 Radiographs of the lumbar spine 10/10/07 TECHNIQUE: 5 views of cervical spine Frontal and lateral views of the thoracic spine 3 views of the lumbar spine FINDINGS: Cervical spine: The anatomy inferior to mid C5 is partially obscured in the lateralprojection. Attempt at a lateral view in the swimmer's projection islimited. No suspicious prevertebral soft tissue abnormality. There is no acute fracture or subluxation demonstrated. No suspiciousfocal lesion or loss of volume. There is moderate narrowing of the discs between C3 and C7. There isendplate sclerosis and there are marginal osteophytes. There is narrowingof the facets. There is some uncovertebral joint spurring included on theright at C5/C6. There are prominent transverse processes at [id number]. There is mild bony foraminal narrowing on the right at C3/C4 and C4/C5 andmoderate bony foraminal narrowing on the right at C5/C6 and C6/C7. There is moderate bony foraminal narrowing on the left at C3/C4 andC4/C5. Thoracic spine: I suspect 11 rib-bearing vertebrae. There is no acute fracture orsubluxation. No significant loss of volume. The endplates are sharply defined. The pedicles appear intact. There is nosuspicious paraspinal abnormality. Lumbar spine: There are 6 nonrib-bearing vertebrae. Numbering will reflect that thelowest disc as L5/S1 and assuming rudimentary ribs at T12. There is no acute fracture, subluxation, suspicious focal lesion or lossof volume. Trace disc narrowing in the upper lumbar spine. The pedicles appear intact. No definite erosions involving the SI joints.No suspicious paraspinal abnormality. IMPRESSION: 1. No acute fracture or subluxation. 2. Degenerative changes in the cervical spine. 3. Close attention to the numbering necessary if intervention isundertaken. -------- FINAL REPORT -------- Dictated By: Vlad Batista Dictated Date: 03/28/2025 12:57 ET Assigned Physician: Vlad Batista Reviewed and Electronically Signed By: Vlad Batista Signed Date: 03/28/2025 13:07 ET Workstation ID: [id number] Transcribed By: Self Edit Transcribed Date: 03/28/2025 12:57 ET us Nic Caballero MD IMG XR PROCEDURES Final Resu lt * XR Thoracic Spine 2 Views (03/27/2025 1:04 PM EST) Anatomical Region Laterality Modality Spine, T-spine Radiographic Geovanna ging 03/28/2025 12:5 7 PM EST Impressions 03/28/2025 1:07 PM EST 1. No acute fracture or subluxation. 2. Degenerative changes in the cervical spine. 3. Close attention to the numbering necessary if intervention is undertaken. -------- FINAL REPORT -------- Dictated By: Vlad Batista Dictated Date: 03/28/2025 12:57 ET Assigned Physician: Vlad Batista Reviewed and Electronically Signed By: Vlad Batista Signed Date: 03/28/2025 13:07 ET Workstation ID: [id number] Transcribed By: Self Edit Transcribed Date: 03/28/2025 12:57 ET Narrative 03/28/2025 1:07 PM EST EXAMINATION: CERVICAL SPINE THORACIC SPINE LUMBAR SPINE CLINICAL INFORMATION: Neck pain Back pain COMPARISON: Parasagittal reformatted images of the cervical spine 01/26/25 Radiographs of the thoracic spine 10/10/07 Radiographs of the lumbar spine 10/10/07 TECHNIQUE: 5 views of cervical spine Frontal and lateral views of the thoracic spine 3 views of the lumbar spine FINDINGS: Cervical spine: The anatomy inferior to mid C5 is partially obscured in the lateral projection. Attempt at a lateral view in the swimmer's projection is limited. No suspicious prevertebral soft tissue abnormality. There is no acute fracture or subluxation demonstrated. No suspicious focal lesion or loss of volume. There is moderate narrowing of the discs between C3 and C7. There is endplate sclerosis and there are marginal osteophytes. There is narrowing of the facets. There is some uncovertebral joint spurring included on the right at C5/C6. There are prominent transverse processes at C7 bilaterally. There is mild bony foraminal narrowing on the right at C3/C4 and C4/C5 and moderate bony foraminal narrowing on the right at C5/C6 and C6/C7. There is moderate bony foraminal narrowing on the left at C3/C4 and C4/C5. Thoracic spine: I suspect 11 rib-bearing vertebrae. There is no acute fracture or subluxation. No significant loss of volume. The endplates are sharply defined. The pedicles appear intact. There is no suspicious paraspinal abnormality. Lumbar spine: There are 6 nonrib-bearing vertebrae. Numbering will reflect that the lowest disc as L5/S1 and assuming rudimentary ribs at T12. There is no acute fracture, subluxation, suspicious focal lesion or loss of volume. Trace disc narrowing in the upper lumbar spine. The pedicles appear intact. No definite erosions involving the SI joints. No suspicious paraspinal abnormality. Procedure Note Vlad Batista MD - 03/28/2025 EXAMINATION: CERVICAL SPINE THORACIC SPINE LUMBAR SPINE CLINICAL INFORMATION: Neck pain Back pain COMPARISON: Parasagittal reformatted images of the cervical spine 01/26/25 Radiographs of the thoracic spine 10/10/07 Radiographs of the lumbar spine 10/10/07 TECHNIQUE: 5 views of cervical spine Frontal and lateral views of the thoracic spine 3 views of the lumbar spine FINDINGS: Cervical spine: The anatomy inferior to mid C5 is partially obscured in the lateralprojection. Attempt at a lateral view in the swimmer's projection islimited. No suspicious prevertebral soft tissue abnormality. There is no acute fracture or subluxation demonstrated. No suspiciousfocal lesion or loss of volume. There is moderate narrowing of the discs between C3 and C7. There isendplate sclerosis and there are marginal osteophytes. There is narrowingof the facets. There is some uncovertebral joint spurring included on theright at C5/C6. There are prominent transverse processes at [id number]. There is mild bony foraminal narrowing on the right at C3/C4 and C4/C5 andmoderate bony foraminal narrowing on the right at C5/C6 and C6/C7. There is moderate bony foraminal narrowing on the left at C3/C4 andC4/C5. Thoracic spine: I suspect 11 rib-bearing vertebrae. There is no acute fracture orsubluxation. No significant loss of volume. The endplates are sharply defined. The pedicles appear intact. There is nosuspicious paraspinal abnormality. Lumbar spine: There are 6 nonrib-bearing vertebrae. Numbering will reflect that thelowest disc as L5/S1 and assuming rudimentary ribs at T12. There is no acute fracture, subluxation, suspicious focal lesion or lossof volume. Trace disc narrowing in the upper lumbar spine. The pedicles appear intact. No definite erosions involving the SI joints.No suspicious paraspinal abnormality. IMPRESSION: 1. No acute fracture or subluxation. 2. Degenerative changes in the cervical spine. 3. Close attention to the numbering necessary if intervention isundertaken. -------- FINAL REPORT -------- Dictated By: Vlad Batista Dictated Date: 03/28/2025 12:57 ET Assigned Physician: Vlad Batista Reviewed and Electronically Signed By: Vlad Batista Signed Date: 03/28/2025 13:07 ET Workstation ID: [id number] Transcribed By: Self Edit Transcribed Date: 03/28/2025 12:57 ET us Nic Caballero MD IMG XR PROCEDURES Final Resu lt * XR Cervical Spine 4-5 Views (03/27/2025 1:03 PM EST) Anatomical Region Laterality Modality Spine, C-spine Radiographic Geovanna ging 03/28/2025 12:5 7 PM EST Impressions 03/28/2025 1:07 PM EST 1. No acute fracture or subluxation. 2. Degenerative changes in the cervical spine. 3. Close attention to the numbering necessary if intervention is undertaken. -------- FINAL REPORT -------- Dictated By: Vlad Batista Dictated Date: 03/28/2025 12:57 ET Assigned Physician: Vlad Batista Reviewed and Electronically Signed By: Vlad Batista Signed Date: 03/28/2025 13:07 ET Workstation ID: [id number] Transcribed By: Self Edit Transcribed Date: 03/28/2025 12:57 ET Narrative 03/28/2025 1:07 PM EST EXAMINATION: CERVICAL SPINE THORACIC SPINE LUMBAR SPINE CLINICAL INFORMATION: Neck pain Back pain COMPARISON: Parasagittal reformatted images of the cervical spine 01/26/25 Radiographs of the thoracic spine 10/10/07 Radiographs of the lumbar spine 10/10/07 TECHNIQUE: 5 views of cervical spine Frontal and lateral views of the thoracic spine 3 views of the lumbar spine FINDINGS: Cervical spine: The anatomy inferior to mid C5 is partially obscured in the lateral projection. Attempt at a lateral view in the swimmer's projection is limited. No suspicious prevertebral soft tissue abnormality. There is no acute fracture or subluxation demonstrated. No suspicious focal lesion or loss of volume. There is moderate narrowing of the discs between C3 and C7. There is endplate sclerosis and there are marginal osteophytes. There is narrowing of the facets. There is some uncovertebral joint spurring included on the right at C5/C6. There are prominent transverse processes at C7 bilaterally. There is mild bony foraminal narrowing on the right at C3/C4 and C4/C5 and moderate bony foraminal narrowing on the right at C5/C6 and C6/C7. There is moderate bony foraminal narrowing on the left at C3/C4 and C4/C5. Thoracic spine: I suspect 11 rib-bearing vertebrae. There is no acute fracture or subluxation. No significant loss of volume. The endplates are sharply defined. The pedicles appear intact. There is no suspicious paraspinal abnormality. Lumbar spine: There are 6 nonrib-bearing vertebrae. Numbering will reflect that the lowest disc as L5/S1 and assuming rudimentary ribs at T12. There is no acute fracture, subluxation, suspicious focal lesion or loss of volume. Trace disc narrowing in the upper lumbar spine. The pedicles appear intact. No definite erosions involving the SI joints. No suspicious paraspinal abnormality. Procedure Note Vlad Batista MD - 03/28/2025 EXAMINATION: CERVICAL SPINE THORACIC SPINE LUMBAR SPINE CLINICAL INFORMATION: Neck pain Back pain COMPARISON: Parasagittal reformatted images of the cervical spine 01/26/25 Radiographs of the thoracic spine 10/10/07 Radiographs of the lumbar spine 10/10/07 TECHNIQUE: 5 views of cervical spine Frontal and lateral views of the thoracic spine 3 views of the lumbar spine FINDINGS: Cervical spine: The anatomy inferior to mid C5 is partially obscured in the lateralprojection. Attempt at a lateral view in the swimmer's projection islimited. No suspicious prevertebral soft tissue abnormality. There is no acute fracture or subluxation demonstrated. No suspiciousfocal lesion or loss of volume. There is moderate narrowing of the discs between C3 and C7. There isendplate sclerosis and there are marginal osteophytes. There is narrowingof the facets. There is some uncovertebral joint spurring included on theright at C5/C6. There are prominent transverse processes at [id number]. There is mild bony foraminal narrowing on the right at C3/C4 and C4/C5 andmoderate bony foraminal narrowing on the right at C5/C6 and C6/C7. There is moderate bony foraminal narrowing on the left at C3/C4 andC4/C5. Thoracic spine: I suspect 11 rib-bearing vertebrae. There is no acute fracture orsubluxation. No significant loss of volume. The endplates are sharply defined. The pedicles appear intact. There is nosuspicious paraspinal abnormality. Lumbar spine: There are 6 nonrib-bearing vertebrae. Numbering will reflect that thelowest disc as L5/S1 and assuming rudimentary ribs at T12. There is no acute fracture, subluxation, suspicious focal lesion or lossof volume. Trace disc narrowing in the upper lumbar spine. The pedicles appear intact. No definite erosions involving the SI joints.No suspicious paraspinal abnormality. IMPRESSION: 1. No acute fracture or subluxation. 2. Degenerative changes in the cervical spine. 3. Close attention to the numbering necessary if intervention isundertaken. -------- FINAL REPORT -------- Dictated By: Vlad Batista Dictated Date: 03/28/2025 12:57 ET Assigned Physician: Vlad Batista Reviewed and Electronically Signed By: Vlad Batista Signed Date: 03/28/2025 13:07 ET Workstation ID: [id number] Transcribed By: Self Edit Transcribed Date: 03/28/2025 12:57 ET us Nic Caballero MD IMG XR PROCEDURES Final Resu lt * XR Elbow 3+ Views Right (01/30/2025 10:51 AM EDT) Only the most recent of2 resultswithin the time period is included. Narrative RIS PACS/VR - 01/30/2025 10:51 AM EDT This order has been auto-finalized and does not contain a result. us Edward Bishop MD IMG XR PROCEDURES Final Resul t RIS PACS/VR * CO APPLICATION OF LONG ARM SPLINT, HC APPLICATION SPLINT/CAST/STRAP (01/26/2025 4:46 AM EDT) Yaritza Rodrigez MD - 01/26/2025 4:46 AM EDT TAMMY Boo 01/26/2025 4:47 AM Splint Application Date/Time: 01/26/2025 4:46 AM Performed by: TAMMY Boo Authorized by: Yaritza Swift MD Consent: Consent obtained: Verbal Consent given by: Patient Risks, benefits, and alternatives were discussed: yes Risks discussed: Discoloration, numbness, pain and swelling Alternatives discussed: No treatment [place] protocol: Patient identity confirmed: Verbally with patient Pre-procedure details: Distal neurologic exam: Normal Distal perfusion: distal pulses strong Procedure details: Location: Elbow Elbow location: R elbow Splint type: Long arm Supplies: Cotton padding, elastic bandage and fiberglass Attestation: Splint applied and adjusted personally by me Post-procedure details: Distal neurologic exam: Normal Distal perfusion: distal pulses strong Procedure completion: Tolerated us Yaritza Swift MD IN CLINIC/BEDSIDE ORDERABLES F inal Result * XR Wrist 3+ Views Right (01/26/2025 2:52 AM EDT) Anatomical Region Laterality Modality Upper Extremities, Wrist Right Radiogr aphic Imaging 01/26/2025 8:20 AM EDT Impressions 01/26/2025 8:20 AM EDT Normal radiographic appearance of the wrist. If there is snuffbox tenderness and an appropriate trauma history, recommend immobilization with follow-up imaging in 10 days to exclude an occult scaphoid fracture. -------- FINAL REPORT -------- Dictated By: Farrukh Martínez Dictated Date: 01/26/2025 08:20 ET Assigned Physician: Farrukh Martínez Reviewed and Electronically Signed By: Farrukh Martínez Signed Date: 01/26/2025 08:20 ET Workstation ID: [id number] Transcribed By: Self Edit Transcribed Date: 01/26/2025 08:20 ET Narrative 01/26/2025 8:20 AM EDT PROCEDURE: Radiographs of the right wrist. HISTORY: pain. COMPARISON: None. FINDINGS: 3 views of the right wrist. Normal bony mineralization. No fracture or malalignment. No erosion or significant degenerative change. No bony lesion. Soft tissues are unremarkable. Procedure Note Farrukh Martínez MD - 01/26/2025 PROCEDURE: Radiographs of the right wrist. HISTORY: pain. COMPARISON: None. FINDINGS: 3 views of the right wrist. Normal bony mineralization. No fracture ormalalignment. No erosion or significant degenerative change. No bonylesion. Soft tissues are unremarkable. IMPRESSION: Normal radiographic appearance of the wrist. If there is snuffboxtenderness and an appropriate trauma history, recommend immobilizationwith follow-up imaging in 10 days to exclude an occult scaphoidfracture. -------- FINAL REPORT -------- Dictated By: Farrukh Martínez Dictated Date: 01/26/2025 08:20 ET Assigned Physician: Farrukh Martínez Reviewed and Electronically Signed By: Farrukh Martínez Signed Date: 01/26/2025 08:20 ET Workstation ID: [id number] Transcribed By: Self Edit Transcribed Date: 01/26/2025 08:20 ET Sridevi MUNOZ IMG XR PROCEDURES Final Result * XR Forearm 2 Views Right (01/26/2025 2:52 AM EDT) Anatomical Region Laterality Modality Upper Extremities, Forearm Right Radio graphic Imaging 01/26/2025 8:19 AM EDT Impressions 01/26/2025 8:20 AM EDT No acute fracture or malalignment. -------- FINAL REPORT -------- Dictated By: Farrukh Martínez Dictated Date: 01/26/2025 08:19 ET Assigned Physician: Farrukh Martínez Reviewed and Electronically Signed By: Farrukh Martínez Signed Date: 01/26/2025 08:20 ET Workstation ID: [id number] Transcribed By: Self Edit Transcribed Date: 01/26/2025 08:19 ET Narrative 01/26/2025 8:20 AM EDT Procedure: Radiographs of the right forearm. HISTORY: pain. COMPARISON: None. FINDINGS: 2 views of the right forearm. No fracture, malalignment, erosion, or bony lesion. Mild degenerative changes of the elbow which are incompletely evaluated. Procedure Note Farrukh Martínez MD - 01/26/2025 Procedure: Radiographs of the right forearm. HISTORY: pain. COMPARISON: None. FINDINGS: 2 views of the right forearm. No fracture, malalignment, erosion, or bonylesion. Mild degenerative changes of the elbow which are incompletelyevaluated. IMPRESSION: No acute fracture or malalignment. -------- FINAL REPORT -------- Dictated By: Farrukh Martínez Dictated Date: 01/26/2025 08:19 ET Assigned Physician: Farrukh Martínez Reviewed and Electronically Signed By: Farrukh Martínez Signed Date: 01/26/2025 08:20 ET Workstation ID: [id number] Transcribed By: Self Edit Transcribed Date: 01/26/2025 08:19 ET Sridevi MUNOZ IMG XR PROCEDURES Final Result * XR Humerus 2+ Views Right (01/26/2025 2:52 AM EDT) Anatomical Region Laterality Modality Upper Extremities, Humerus Right Radio graphic Imaging 01/26/2025 8:18 AM EDT Impressions 01/26/2025 8:19 AM EDT No acute findings. -------- FINAL REPORT -------- Dictated By: Farrukh Martínez Dictated Date: 01/26/2025 08:18 ET Assigned Physician: Farrukh Martínez Reviewed and Electronically Signed By: Farrukh Martínez Signed Date: 01/26/2025 08:19 ET Workstation ID: [id number] Transcribed By: Self Edit Transcribed Date: 01/26/2025 08:18 ET Narrative 01/26/2025 8:19 AM EDT PROCEDURE: Radiographs of the right humerus. HISTORY: pain. COMPARISON: None. FINDINGS: 2 views of the right humerus. No fracture, malalignment, erosion, or bony lesion. Mild degenerative changes at the acromioclavicular joint and mild spurring of the olecranon process of the ulna. Procedure Note Farrukh Martínez MD - 01/26/2025 PROCEDURE: Radiographs of the right humerus. HISTORY: pain. COMPARISON: None. FINDINGS: 2 views of the right humerus. No fracture, malalignment, erosion, or bonylesion. Mild degenerative changes at the acromioclavicular joint and mildspurring of the olecranon process of the ulna. IMPRESSION: No acute findings. -------- FINAL REPORT -------- Dictated By: Farrukh Martínez Dictated Date: 01/26/2025 08:18 ET Assigned Physician: Farrukh Martínez Reviewed and Electronically Signed By: Farrukh Martínez Signed Date: 01/26/2025 08:19 ET Workstation ID: [id number] Transcribed By: Self Edit Transcribed Date: 01/26/2025 08:18 ET Sridevi MUNOZ IMG XR PROCEDURES Final Result * XR Knee 3 Views Left (01/26/2025 2:21 AM EDT) Anatomical Region Laterality Modality Lower Extremities, Knee [facility] 01/26/2025 8:22 AM EDT Impressions 01/26/2025 8:22 AM EDT Moderate joint effusion. No acute bony findings. -------- FINAL REPORT -------- Dictated By: Farrukh Martínez Dictated Date: 01/26/2025 08:22 ET Assigned Physician: Farrukh Martínez Reviewed and Electronically Signed By: Farrukh Martínez Signed Date: 01/26/2025 08:22 ET Workstation ID: [id number] Transcribed By: Self Edit Transcribed Date: 01/26/2025 08:22 ET Narrative 01/26/2025 8:22 AM EDT PROCEDURE: Radiographs of the left knee. HISTORY: pain. COMPARISON: 01/26/2025. FINDINGS: 3 views of the left knee. Small quadriceps insertion enthesophyte. Moderate suprapatellar joint effusion. Minimal patellofemoral and lateral compartment osteophytes. No fracture, malalignment, erosion, or bony lesion. Procedure Note Farrukh Martínez MD - 01/26/2025 PROCEDURE: Radiographs of the left knee. HISTORY: pain. COMPARISON: 01/26/2025. FINDINGS: 3 views of the left knee. Small quadriceps insertion enthesophyte.Moderate suprapatellar joint effusion. Minimal patellofemoral and lateralcompartment osteophytes. No fracture, malalignment, erosion, or bonylesion. IMPRESSION: Moderate joint effusion. No acute bony findings. -------- FINAL REPORT -------- Dictated By: Farrukh Martínez Dictated Date: 01/26/2025 08:22 ET Assigned Physician: Farrukh Martínez Reviewed and Electronically Signed By: Farrukh Martínez Signed Date: 01/26/2025 08:22 ET Workstation ID: [id number] Transcribed By: Self Edit Transcribed Date: 01/26/2025 08:22 ET Sridevi MUNOZ IMG XR PROCEDURES Final Result * CT Cervical Spine wo Contrast (01/26/2025 1:58 AM EDT) Anatomical Region Laterality Modality Spine, C-spine Computed Tomogra phy 01/26/2025 4:08 AM EDT Impressions 01/26/2025 4:08 AM EDT No acute findings. This document has been electronically signed by: Giovanni Haq MD, PHD on 01/26/2025 04:08:25 Narrative 01/26/2025 4:08 AM EDT INDICATION: fall- neck pain CT cervical spine without contrast Comparison: None provided Findings: There is straightening of the normal cervical lordosis. Multilevel cervical spine degenerative changes are present, characterized by disc height loss, endplate sclerosis and disc osteophyte complex formation. Chronic fracture deformity of C1 noted. Visualized intracranial contents are unremarkable. Soft tissues of the neck are normal. Lung apices are clear. Procedure Note Giovanni Haq MD PhD - 01/26/2025 INDICATION: fall- neck pain CT cervical spine without contrast Comparison: None provided Findings: There is straightening of the normal cervical lordosis. Multilevel cervical spine degenerative changes are present,characterized by disc height loss, endplate sclerosis and disc osteophyte complex formation. Chronic fracture deformity of C1 noted. Visualized intracranial contents are unremarkable. Soft tissues of the neck are normal. Lung apices are clear. IMPRESSION: No acute findings. This document has been electronically signed by: Giovanni Haq MD, PHD on 01/26/2025 04:08:[address] PROCEDURES Final Result * CT Head wo Contrast (01/26/2025 1:58 AM EDT) Anatomical Region Laterality Modality Head and Neck Computed Tomogra phy 01/26/2025 4:06 AM EDT Impressions 01/26/2025 4:06 AM EDT 1. No acute intracranial findings. This document has been electronically signed by: Giovanni Haq MD, PHD on 01/26/2025 04:06:32 Narrative 01/26/2025 4:06 AM EDT INDICATION: Head trauma, minor, normal mental status (Age 19-64y) CT head without contrast Comparison: None provided Findings: No intra-axial mass, midline shift, hydrocephalus, or acute hemorrhage. Nonspecific white matter hypodensity is present with mild volume loss. There is no sinus or mastoid fluid. The orbits are within normal limits. There is no acute fracture. Procedure Note Giovanni Haq MD PhD - 01/26/2025 INDICATION: Head trauma, minor, normal mental status (Age 19-64[address]) CT head without contrast Comparison: None provided Findings: No intra-axial mass, midline shift, hydrocephalus, or acute hemorrhage. Nonspecific white matter hypodensity is present with mild volume loss. There is no sinus or mastoid fluid. The orbits are within normal limits. There is no acute fracture. IMPRESSION: 1. No acute intracranial findings. This document has been electronically signed by: Giovanni Haq MD, PHD on 01/26/2025 04:06:32 [facility] Gloria MUNOZ IMG CT PROCEDURES Final Result from Last 3 Months Insurance [place] Care Teams Hop Strainer Relationship Specialty Start Date End Date Physician, Pcp Unknown PCP - General 01/26/25
--- OUTSIDE RECORDS SUMMARY | 2025-04-21 14:04 | XMS_ITS | Encounter Summary ---
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 Name Role Phone Physician, Pcp Unknown Primary Care Provider Carmen vailable Encounter Details Date Type Department Care Team (Late st Contact Info) Description 10/25/2024 Lab Requisition [facility] - Main Lab [address] [place] [address] Naresh Lennon PA [address] [place] [phone] Testicular hypofunction Social History Tobacco Use Types [...] Procedure Name Priority Date/Time Associated Diagnosis Comments COMPLETE BLOOD COUNT Routine 10/25/2024 9:02 AM EDT Testicular hypofunction HEPATIC FUNCTION PANEL Routine 10/25/2024 9:02 AM EDT Testicular hypofunction documented in this encounter Results * (ABNORMAL) Hepatic function panel (10/25/2024 9:02 AM EDT) Total Protein 7.6 6.0 - 8.0 g/dL LAB CHEMISTRY METHOD 10/25/2024 3:25 PM EDT [facility] Albumin 3.5 3.2 - 5.0 g/dL LAB CHEMISTRY METHOD 10/25/2024 3:25 PM EDT [facility] Total Bilirubin 0.4 0.0 - 1.4 mg/dL LAB CHEMISTRY METHOD 10/25/2024 3:25 PM [facility] Bilirubin, Direct 0.1 0.0 - 0.3 mg/dL LAB CHEMISTRY METHOD 10/25/2024 3:25 PM EDT [facility] Bilirubin, Indirect 0.3 0.0 - 1.1 mg/dL LAB CHEMISTRY METHOD 10/25/2024 3:25 PM [facility] ALT (SGPT) 64(H) 10 - 60 unit/L LAB CHEMISTRY METHOD 10/25/2024 3:25 PM [facility] AST (SGOT) 26 10 - 42 unit/L LAB CHEMISTRY METHOD 10/25/2024 3:25 PM [facility] Alkaline Phosphatase 85 42 - 121 unit/L LAB CHEMISTRY METHOD 10/25/2024 3:25 PM [facility] Blood Venous blood specimen / Unknown 10/25/2024 9:02 AM EDT 10/25/2024 12:19 PM EDT us Naresh MUNOZ LAB BLOOD ORDERABLES Final Res ult [facility] [address] [place] [address], * (ABNORMAL) Complete blood count (10/25/2024 9:02 AM EDT) WBC 11.2(H) 4.8 - 10.8 K/[facility] LAB HEMETOLOGY METHOD 10/25/2024 12:50 PM EDT [facility] RBC 5.60(H) 4.50 - 5.50 M/mcL LAB HEMETOLOGY METHOD 10/25/2024 12:50 PM EDT [facility] Hemoglobin 17.0 13.5 - 17.5 g/dL LAB HEMETOLOGY METHOD 10/25/2024 12:50 PM [facility] Hematocrit 55.0(H) 42.0 - 54.0 % LAB HEMETOLOGY METHOD 10/25/2024 12:50 PM [facility] MCV 98.0 79.0 - 98.0 FL LAB HEMETOLOGY METHOD 10/25/2024 12:50 PM [facility] MCH 30.3 27.0 - 32.0 pcg LAB HEMETOLOGY METHOD 10/25/2024 12:50 PM [facility] MCHC 30.9(L) 32.0 - 37.0 g/dL LAB HEMETOLOGY METHOD 10/25/2024 12:50 PM [facility] RDW 13.6 11.0 - 15.0 % LAB HEMETOLOGY METHOD 10/25/2024 12:50 PM [facility] Platelets 311 130 - 400 K/mcL LAB HEMETOLOGY METHOD 10/25/2024 12:50 PM [facility] MPV 11.8(H) 7.0 - 11.0 FL LAB HEMETOLOGY METHOD 10/25/2024 12:50 PM [facility] NRBC 0.0 <1.0 % LAB HEMETOLOGY METHOD 10/25/2024 12:50 PM [facility] NRBC Absolute 0.00 <0.10 K/mcL LAB HEMETOLOGY METHOD 10/25/2024 12:50 PM [facility] Blood Venous blood specimen / Unknown 10/25/2024 9:02 AM EDT 10/25/2024 12:19 PM EDT us Naresh MUNOZ LAB BLOOD ORDERABLES Final Res ult [facility] ([facility] [address] [place] [address], documented in this encounter Visit Diagnoses Diagnosis Testicular hypofunction Other testicular hypofunction documented in this encounter Care Teams Demolition Hammer Operator Relationship Specialty Start Date End Date Physician, Pcp Unknown PCP - General 01/26/25 documented as of this encounter
--- OUTSIDE RECORDS SUMMARY | 2025-04-21 14:04 | XMS_ITS | Encounter Summary ---
Demographics Address [address] [place] [address] Home Phone Mobile Phone Home Phone Email Address Email Address Email Address Preferred Language Unknown Marital Status Unknown Methodist Affiliation Unknown Race Black or Edda rican Ethnic Group Unknown Author Organization [facility] Address [address] [place] [address] Care Team Providers Care Materials Technician Name Role Phone Physician, Pcp Unknown Primary Care Provider Carmen vailable Encounter Details Date Type Department Care Team ([facility] st Contact Info) Description 07/16/2024 Lab Requisition [facility] - Main Lab [address] [facility] [place] [address] Naresh Lennon PA [address] [place] [phone] Testicular hypofunction Social History Tobacco Use Types [...] K/mcL LAB HEMETOLOGY METHOD 07/16/2024 1:55 PM [facility] LAB RBC 5.00 4.50 - 5.50 M/mcL LAB HEMETOLOGY METHOD 07/16/2024 1:55 PM [facility] LAB Hemoglobin 15.0 13.5 - 17.5 g/dL LAB HEMETOLOGY METHOD 07/16/2024 1:55 PM [facility] LAB Hematocrit 46.5 42.0 - 54.0 % LAB HEMETOLOGY METHOD 07/16/2024 1:55 PM [facility] LAB MCV 92.3 79.0 - 98.0 FL LAB HEMETOLOGY METHOD 07/16/2024 1:55 PM [facility] LAB MCH 29.8 27.0 - 32.0 pcg LAB HEMETOLOGY METHOD 07/16/2024 1:55 PM [facility] LAB MCHC 32.3 32.0 - 37.0 g/dL LAB HEMETOLOGY METHOD 07/16/2024 1:55 PM [facility] LAB RDW 14.3 11.0 - 15.0 % LAB HEMETOLOGY METHOD 07/16/2024 1:55 PM [facility] LAB Platelets 237 130 - 400 K/mcL LAB HEMETOLOGY METHOD 07/16/2024 1:55 PM [facility] LAB MPV 11.9(H) 7.0 - 11.0 FL LAB HEMETOLOGY METHOD 07/16/2024 1:55 PM [facility] LAB NRBC 0.0 <1.0 % LAB HEMETOLOGY METHOD 07/16/2024 1:55 PM [facility] LAB NRBC Absolute 0.00 <0.10 K/mcL LAB HEMETOLOGY METHOD 07/16/2024 1:55 PM [facility] LAB Neutrophils Relative 67.7 % LAB HEMETOLOGY METHOD 07/16/2024 1:55 PM [facility] LAB Lymphocytes Relative 19.0 % LAB HEMETOLOGY METHOD 07/16/2024 1:55 PM [facility] LAB Monocytes Relative 10.7 % LAB HEMETOLOGY METHOD 07/16/2024 1:55 PM [facility] LAB Eosinophils Relative 1.2 % LAB HEMETOLOGY METHOD 07/16/2024 1:55 PM [facility] LAB Basophils Relative 0.5 % LAB HEMETOLOGY METHOD 07/16/2024 1:55 PM [facility] Immature Granulocytes Relative 0.9 % LAB HEMETOLOGY METHOD 07/16/2024 1:55 PM [facility] LAB Neutrophils Absolute 2.86 1.50 - 7.00 K/mcL LAB HEMETOLOGY METHOD 07/16/2024 1:55 PM [facility] LAB Lymphocytes Absolute 0.80(L) 1.00 - 5.00 K/mcL LAB HEMETOLOGY METHOD 07/16/2024 1:55 PM [facility] LAB Monocytes Absolute 0.45 0.20 - 1.00 K/mcL LAB HEMETOLOGY METHOD 07/16/2024 1:55 PM [facility] LAB Eosinophils Absolute 0.05 0.00 - 0.50 K/mcL LAB HEMETOLOGY METHOD 07/16/2024 1:55 PM [facility] LAB Basophils Absolute 0.02 0.00 - 0.20 K/mcL LAB HEMETOLOGY METHOD 07/16/2024 1:55 PM [facility] LAB Immature Granulocytes Absolute 0.04(H) 0.00 - 0.03 K/mcL LAB HEMETOLOGY METHOD 07/16/2024 1:55 PM [facility] LAB Blood Venous blood specimen / Unknown 07/16/2024 9:07 AM EST 07/16/2024 1:09 PM EST us Naresh Lennon PA LAB BLOOD ORDERABLES Final Res ult [facility] H[facility]PITAL LAB [address] [place] [address], documented in this encounter Visit Diagnoses Diagnosis Testicular hypofunction Other testicular hypofunction documented in this encounter Care Teams Materials Technician Relationship Specialty Start Date End Date Physician, Pcp Unknown PCP - General 01/26/25 documented as of this encounter
== END 2025-04-21 10:51 | disposition home or self-care (01) ==
LOC: HO.HKASLDS 10:50
PROVIDERS: Visit Provider Internal Medicine Rheumatology
DX: M1A.39X1 Chronic gout due to renal impairment, multiple sites, with tophus (tophi) (principal); Z79.899 Other long term (current) drug therapy
CPT/HCPCS: 36415; 82565; 84450; 84460; 84550; 85025; 85652; 86140

== ENCOUNTER 2025-04-24 13:16 | Outpatient (AMB) | payer MEDICARE, MEDICAID, SELFPAY ==
[2025-04-24 13:18] VITALS: BP 104/80; PULSE 132; O2SAT 99; BMI 38.3
--- NOTE | 2025-04-24 13:18 | A.OFFVIS_ITS ---
Vital Signs 04/24/25 13:18 Height 5 ft 10 in Weight 266 lb 12.149 oz BMI 38.3 BP 104/80 Blood Pressure Location Rt brachial Position Sitting Pulse 132 H Pulse Source Pulse Oximeter Pulse Oximetry (%) 99 Oxygen Delivery Method Room Air Intake Visit Reasons: follow up Intake Note: Patient presents for gout follow up. Accompanied by: Self / Same As Patient Allergies No Known Allergies Allergy (Verified 12/03/24 10:27) HPI HPI follow up: Details: He developed joint swelling in his hands, knees, elbows, shoulders and right foot 3 weeks ago. He has been using Tylenol and ibuprofen 800 mg. He also has been given prednisone from his friends. He went to urgent care received prednisone 20 mg daily. It helped reduce left knee swelling. [facility] Medical History Achilles tendinitis, left leg Low testosterone Hypertension GERD (gastroesophageal reflux disease) CKD (chronic kidney disease) Gout Social History Alcohol intake: current Alcohol intake frequency: holidays/special occasions only Patient Tobacco Use Status: Never used Tobacco Physical Exam Vital Signs: Last Vital Signs Pulse 132 H 04/24/25 13:18 BP 104/80 04/24/25 13:18 Pulse Ox 99 04/24/25 13:18 Oxygen Delivery Method Room Air 04/24/25 13:18 BMI result Body Mass Index 38.3 Const Other: General: Comfortable Skin: No lesions seen MSK: Synovitis of right 3rd PIP with tenderness, left 2nd to 5th MCP and PIP, bilateral elbows, mild synovitis bilateral knees. Tender to palpate right dorsal foot with soft tissue swelling. 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 He is unable to extend his arms past 90 degrees. Assessment & Plan Assessment & Plan (1) Gout: Comment: recurrent flare, polyarticular. His uric acid goal is less than 5. Kidney function has declined likely contributing to gout flare. His creatinine clearance is 74 mL/minute. Rheumatology history: Polyarticular chronic tophaceous gout. He has required multiple courses of prednisone including Depo-Medrol but continues to have recurrent episodes on colchicine 0.6 mg b.i.d. He could not tolerate allopurinol with introduction on 3 occasions as it caused gout flare. CKD stage III (11/2023 labs). Febuxostat 06/2024- Code(s): M10.9 - Gout, unspecified Category: Medical Qualifiers: Chronicity: chronic Gout etiology: due to renal impairment Gout site: multiple sites Presence of tophus: with tophus Qualified Code(s): M1A.39X1 - Chronic gout due to renal impairment, multiple sites, with tophus (tophi) Plan: Prednisone course ordered Increase febuxostat 80 mg daily. Gout prophylaxis: Continue colchicine 0.6 mg twice a day. 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: Code(s): M1A.39X1 - Chronic gout due to renal impairment, multiple sites, with tophus (tophi) Category: Medical Plan: See above (3) [facility] [place] [facility] [place] [place]: Code(s): Z79.899 - Other [place] [facility] [place] [place] Category: Medical Plan: See above (4) Chronic kidney disease, stage 3: Code(s): N18.30 - Chronic kidney disease, stage 3 unspecified Category: Medical Plan: renal consultation Orders: Orders Rheumatoid Factor 04/24/25 M1A.39X1 - Chronic gout due to renal impairment, multiple sites, with tophus (tophi), Z79.899 - Other [place] [facility] [place] drug therapy Cyclic Citrullinated Peptide 04/24/25 M1A.39X1 - Chronic gout due to renal impairment, multiple sites, with tophus (tophi), Z79.899 - Other [place] [facility] [place] drug therapy Referrals Nephrology Referral M1A.39X1 - Chronic gout due to renal impairment, multiple sites, with tophus (tophi), N18.30 - Chronic kidney disease, stage 3 unspecified Medications: New febuxostat 80 mg PO DAILY 90 tabs 4RF Changed From prednisone see taper instructions: Take 4 tablets daily for 3 days, 3 tablets daily for 3 days, 2 tablets daily for 3 days, 1 tablet daily for 3 days then stop. 10 mg PO DIRECTED 30 tabs 0RF To prednisone see taper instructions: Take 4 tablets daily for 7 days, 3 tablets daily for 7 days, 2 tablets daily for 7 days, 1 tablet daily for 7 days then stop. 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
== END 2025-04-24 13:46 | disposition home or self-care (01) ==
LOC: HO.RHES 13:17
PROVIDERS: PCP Internal Medicine; Visit Provider Internal Medicine Rheumatology
DX: M1A.39X1 Chronic gout due to renal impairment, multiple sites, with tophus (tophi) (principal); Z79.899 Other long term (current) drug therapy; N18.30 Chronic kidney disease, stage 3 unspecified
CPT/HCPCS: 99214; G2211

== ENCOUNTER → 2025-04-24 13:16 | Outpatient (BNVA) | payer MEDICARE, MEDICAID, SELFPAY | PROVIDERS: Visit Provider Internal Medicine Rheumatology | DX: M1A.39X1 Chronic gout due to renal impairment, multiple sites, with tophus (tophi) (principal); N18.30 Chronic kidney disease, stage 3 unspecified | CPT/HCPCS: 99212 ==

== ENCOUNTER 2025-05-21 11:30 | Outpatient (AMB) | payer MEDICARE, MEDICAID, SELFPAY ==
--- NOTE | 2025-05-21 11:40 | HO.NEPHOV ---
Vital Signs 05/21/25 11:41 Height 5 ft 10 in Weight 268 lb BMI 38.4 BP 128/90 H Blood Pressure Location Lt brachial Position Sitting Pulse 64 Pulse Source Pulse Oximeter Pulse Oximetry (%) 93 Oxygen Delivery Method Room Air Intake Visit Reasons: INP DX- CKD Pneudraulic Systems Mechanic Required: No Accompanied by: Self / Same As Patient Allergies No Known Allergies Allergy (Verified 05/21/25 11:43) Do you need a note to return to daycare/school/sports/work: No HPI Comments Details: 59-year-old gentleman who with past medical history of hypertension, gout is here to establish care for CKD. Single parent of a 14 years old son. Hypertension: since 2022 on losartan 50 mg and amlodipine 10 mg daily Gout: since 10 years, on febuxostat. Well controlled with febuxistat. Not taking colchicine as he doesnt need. [facility] Medical History (Updated 05/21/25 @ 11:47 by Franc Hilton MD) Achilles tendinitis, left leg Low testosterone Hypertension GERD (gastroesophageal reflux disease) CKD (chronic kidney disease) Gout Social History Alcohol intake: current Alcohol intake frequency: holidays/special occasions only Patient Tobacco Use Status: Never used Tobacco Review of Systems Const Details: Const : no body aches, no chills, no excessive sweating and no fatigue Eyes: no blurry vision and no change in vision ENT: no bleeding gums and no change in voice, no dizziness Card: no chest pain, no shortness of breath, no orthopnea, no PND Resp: no cough, no excessive phlegm production, no SOB GI: no abdominal pain and no nausea, no vomiting : no hematuria, no urinary frequency and no difficulty voiding Musc: no abnormal gait, no bone pain Neuro: no abnormal movements, no weakness, no dizziness, no abnormal gait and no behavioral changes Psych: no behavioral changes and no change in appetite Endo: no change in body appearance, no cold intolerance, no excessive sweating and no fatigue Physical Exam General: not in any acute distress, comfortable, sitting on the chair Nutritional Appearance: well nourished and weight Eyes: normal position, no icterus Neck: No lymphadenopathy, no thyromegaly Resp: bilateral air entry equal, no added sounds present Cardio: normal S1, S2 heard, no murmur heard, no edema GI: soft, nontender, no guarding, no hepatosplenomegaly : bladder normal to inspection, bladder normal to palpation, no renal angle tenderness Skin: no rashes or lesions noted and elasticity normal Neuro: oriented to person, oriented to place, oriented to time and moves all extremities Results Reviewed Nephrology Results: Hgb, (14.0-18.0) 14.9 g/dl 04/21/25 WBC, (4.8-10.8) 7.9 X10*3/uL 04/21/25 Plt Count, (160-400) 487 X10*3/uL H Δ 04/21/25 Creatinine, (0.5-1.4) 1.83 mg/dL H 04/21/25 Assessment & Plan Assessment & Plan (1) Chronic kidney disease, stage 3: Code(s): N18.30 - Chronic kidney disease, stage 3 unspecified Category: Medical (2) Gout: Code(s): M10.9 - Gout, unspecified Category: Medical Qualifiers: Chronicity: chronic Gout etiology: due to renal impairment Gout site: multiple sites Presence of tophus: with tophus Qualified Code(s): M1A.39X1 - Chronic gout due to renal impairment, multiple sites, with tophus (tophi) (3) Hypertension: Code(s): I10 - Essential (primary) hypertension Category: Medical Plan Chronic kidney disease stage : - no family history of CKD, no history of renal stones in the past. occasionally takes NSAID for joint pain asked him to take colchicine and prednisone if he has pain, refill sent. - mother has colon cancer, grand father had colon cancer, dad prostrate cancer. - creatinine 1.26 , GFR 38 - will get urine microalbumin creatinine ratio, UPCR and Urinalysis - No Renal imaging - avoid nephrotoxic medications not limited to NSAIDs, contrast etc. - importance of LPD protein about 0.6mg/kg/day, benefits of plant based diet, weight loss, adequate blood pressure control, well explained to patient. Non smoker, occasional alcoholic. - will get hepatitis panel, HIV, BEATRICE, ANCA, complements, serum FAIZA, serum free light chains Hypertension: - target blood pressures less than 130/90 mm Hg - 128/90mmhg today - continue losrtan 50mg and amlodipine 10mg - no thiazides due to gout Gout: - did not tolerate allopurinol as quality reviewer to flares so is on febuxostat and as needed colchicine This note is constructed using voice recognition software. While every effort has been made to ensure accuracy service center representative errors may have been included. Total time spent in the clinic is about 40 minutes, 10 minutes on chart review, review of data, 20 minutes on encounter, physical examination, counseling, answering all the questions, 10 minutes on documentation. Orders: Orders Microalbumin, Random (w Creat) Today I10 - Essential (primary) hypertension, M1A.39X1 - Chronic gout due to renal impairment, multiple sites, with tophus (tophi), N18.30 - Chronic kidney disease, stage 3 unspecified Protein Creatinine Ratio, Ur Today I10 - Essential (primary) hypertension, M1A.39X1 - Chronic gout due to renal impairment, multiple sites, with tophus (tophi), N18.30 - Chronic kidney disease, stage 3 unspecified Hepatitis B,C Profile Today I10 - Essential (primary) hypertension, M1A.39X1 - Chronic gout due to renal impairment, multiple sites, with tophus (tophi), N18.30 - Chronic kidney disease, stage 3 unspecified ANCA Vasculitides Today I10 - Essential (primary) hypertension, M1A.39X1 - Chronic gout due to renal impairment, multiple sites, with tophus (tophi), N18.30 - Chronic kidney disease, stage 3 unspecified Complement C3 Today I10 - Essential (primary) hypertension, M1A.39X1 - Chronic gout due to renal impairment, multiple sites, with tophus (tophi), N18.30 - Chronic kidney disease, stage 3 unspecified Immunofixation Pnl, Serum Today I10 - Essential (primary) hypertension, M1A.39X1 - Chronic gout due to renal impairment, multiple sites, with tophus (tophi), N18.30 - Chronic kidney disease, stage 3 unspecified Basic Metabolic Panel Today I10 - Essential (primary) hypertension, M1A.39X1 - Chronic gout due to renal impairment, multiple sites, with tophus (tophi), N18.30 - Chronic kidney disease, stage 3 unspecified UA and rflx microscopic Today I10 - Essential (primary) hypertension, M1A.39X1 - Chronic gout due to renal impairment, multiple sites, with tophus (tophi), N18.30 - Chronic kidney disease, stage 3 unspecified HIV Ab/Ag Today I10 - Essential (primary) hypertension, M1A.39X1 - Chronic gout due to renal impairment, multiple sites, with tophus (tophi), N18.30 - Chronic kidney disease, stage 3 unspecified BEATRICE Reflex Titer and Pattern Today I10 - Essential (primary) hypertension, M1A.39X1 - Chronic gout due to renal impairment, multiple sites, with tophus (tophi), N18.30 - Chronic kidney disease, stage 3 unspecified Complement C4 Today I10 - Essential (primary) hypertension, M1A.39X1 - Chronic gout due to renal impairment, multiple sites, with tophus (tophi), N18.30 - Chronic kidney disease, stage 3 unspecified Bixby/Lambda Light Chain Serum Today I10 - Essential (primary) hypertension, M1A.39X1 - Chronic gout due to renal impairment, multiple sites, with tophus (tophi), N18.30 - Chronic kidney disease, stage 3 unspecified Parathyroid Hormone Intact Today I10 - Essential (primary) hypertension, M1A.39X1 - Chronic gout due to renal impairment, multiple sites, with tophus (tophi), N18.30 - Chronic kidney disease, stage 3 unspecified Vitamin D 25-OH Total Today I10 - Essential (primary) hypertension, M1A.39X1 - Chronic gout due to renal impairment, multiple sites, with tophus (tophi), N18.30 - Chronic kidney disease, stage 3 unspecified Referrals Medical Weight Management Referral I10 - Essential (primary) hypertension, M1A.39X1 - Chronic gout due to renal impairment, multiple sites, with tophus (tophi), N18.30 - Chronic kidney disease, stage 3 unspecified Medications: Refilled prednisone see taper instructions: Take 4 tablets daily for 7 days, 3 tablets daily for 7 days, 2 tablets daily for 7 days, 1 tablet daily for 7 days then stop. 10 mg PO DIRECTED 70 tabs 0RF Coding Level of Care Code New Pt Level 4 (05704) Diagnoses Chronic kidney disease, stage 3 N18.30 Chronic gout due to renal impairment of multiple sites with tophus M1A.39X1 Chronicity: chronic Gout etiology: due to renal impairment Gout site: multiple sites Presence of tophus: with tophus Hypertension I10
[2025-05-21 11:41] VITALS: BP 128/90; PULSE 64; O2SAT 93; BMI 38.4
--- OUTSIDE RECORDS SUMMARY | 2025-05-21 13:13 | XMS_ITS | Encounter Summary ---
Demographics Address [address] [place] [address] Home Phone Mobile Phone Home Phone Email Address Email Address Email Address Preferred Language Unknown Marital Status Unknown Yazidism Affiliation Unknown Race Black or Edda rican Ethnic Group Unknown Author Organization [facility] Address [address] [place] [address] Care Team Providers Care Business Services Assistant Name Role Phone Physician, Pcp Unknown Primary Care Provider Carmen vailable Encounter Details Date Type Department Care Team (Late st Contact Info) Description 12/11/2024 Lab Requisition [facility] - Main Lab [address] [facility] [place] [address] Naresh Lennon PA [address] [place] [phone] Testicular hypofunction Social History Tobacco Use Types [...] PM EDT) WBC 5.6 4.8 - 10.8 K/[facility] LAB HEMETOLOGY METHOD 12/11/2024 6:16 PM [facility] LAB RBC 5.90(H) 4.50 - 5.50 M/mcL LAB HEMETOLOGY METHOD 12/11/2024 6:16 PM [facility] LAB Hemoglobin 17.7(H) 13.5 - 17.5 g/dL LAB HEMETOLOGY METHOD 12/11/2024 6:16 PM [facility] LAB Hematocrit 56.3(H) 42.0 - 54.0 % LAB HEMETOLOGY METHOD 12/11/2024 6:16 PM [facility] LAB MCV 95.9 79.0 - 98.0 FL LAB HEMETOLOGY METHOD 12/11/2024 6:16 PM [facility] LAB MCH 30.2 27.0 - 32.0 pcg LAB HEMETOLOGY METHOD 12/11/2024 6:16 PM [facility] LAB MCHC 31.4(L) 32.0 - 37.0 g/dL LAB HEMETOLOGY METHOD 12/11/2024 6:16 PM [facility] LAB RDW 14.5 11.0 - 15.0 % LAB HEMETOLOGY METHOD 12/11/2024 6:16 PM [facility] LAB Platelets 229 130 - 400 K/mcL LAB HEMETOLOGY METHOD 12/11/2024 6:16 PM [facility] LAB MPV 12.4(H) 7.0 - 11.0 FL LAB HEMETOLOGY METHOD 12/11/2024 6:16 PM [facility] LAB NRBC 0.0 <1.0 % LAB HEMETOLOGY METHOD 12/11/2024 6:16 PM [facility] LAB NRBC Absolute 0.00 <0.10 K/mcL LAB HEMETOLOGY METHOD 12/11/2024 6:16 PM [facility] LAB Neutrophils Relative 72.6 % LAB HEMETOLOGY METHOD 12/11/2024 6:16 PM EDT [facility] LAB Lymphocytes Relative 17.2 % LAB HEMETOLOGY METHOD 12/11/2024 6:16 PM EDT [facility] LAB Monocytes Relative 8.3 % LAB HEMETOLOGY METHOD 12/11/2024 6:16 PM [facility] LAB Eosinophils Relative 0.9 % LAB HEMETOLOGY METHOD 12/11/2024 6:16 PM [facility] LAB Basophils Relative 0.5 % LAB HEMETOLOGY METHOD 12/11/2024 6:16 PM [facility] LAB Immature Granulocytes Relative 0.5 % LAB HEMETOLOGY METHOD 12/11/2024 6:16 PM [facility] LAB Neutrophils Absolute 4.09 1.50 - 7.00 K/mcL LAB HEMETOLOGY METHOD 12/11/2024 6:16 PM [facility] LAB Lymphocytes Absolute 0.97(L) 1.00 - 5.00 K/mcL LAB HEMETOLOGY METHOD 12/11/2024 6:16 PM [facility] LAB Monocytes Absolute 0.47 0.20 - 1.00 K/mcL LAB HEMETOLOGY METHOD 12/11/2024 6:16 PM [facility] LAB Eosinophils Absolute 0.05 0.00 - 0.50 K/mcL LAB HEMETOLOGY METHOD 12/11/2024 6:16 PM [facility] LAB Basophils Absolute 0.03 0.00 - 0.20 K/mcL LAB HEMETOLOGY METHOD 12/11/2024 6:16 PM [facility] LAB Immature Granulocytes Absolute 0.03 0.00 - 0.03 K/mcL LAB HEMETOLOGY METHOD 12/11/2024 6:16 PM [facility] LAB Blood Venous blood specimen / Unknown 12/11/2024 1:14 PM EDT 12/11/2024 5:59 PM EDT us Naresh MUNOZ LAB BLOOD ORDERABLES Final Res ult [facility] [address] [place] [address], documented in this encounter Visit Diagnoses Diagnosis Testicular hypofunction Other testicular hypofunction documented in this encounter Care Teams Business Services Assistant Relationship Specialty Start Date End Date Physician, Pcp Unknown PCP - General 01/26/25 documented as of this encounter
--- OUTSIDE RECORDS SUMMARY | 2025-05-21 13:13 | XMS_ITS | Encounter Summary ---
Author Organization [facility], Address [address] [place] [address] Phone Care Team Providers Care Film And Video Graphics Designer Name Role Phone Alexey Espinosa MD Primary Care Provider [phone] Encounter Details Date Type Department Care Team (Late st Contact Info) Description 03/25/2024 Documentation Only [facility], [address] [place] [address] Juan Francisco Sidhu [place] [address] [place] [phone] Social History Tobacco Use Types Packs/Day Years Used Date Smoking Tobacco: Never Assessed Sex and Gender Information Value Date Recorded Sex Assigned at Not on file Legal Sex Male 2:38 PM EST Gender Identity Not on file Sexual Orientation Not on file documented as of this encounter Plan of Treatment Not on file documented as of this encounter Visit Diagnoses Not on filedocumented in this encounter Care Teams Film And Video Graphics Designer Relationship Specialty Start Date End Date Alexey Espinosa MD [address] [place] [phone] PCP - General Internal Medicine 03/25/24 documented as of this encounter
--- OUTSIDE RECORDS SUMMARY | 2025-05-21 13:13 | XMS_ITS | Encounter Summary ---
Demographics Address [address] [place] [address] Home Phone Mobile Phone Home Phone Email Address Email Address Email Address Preferred Language Unknown Marital Status Unknown Baptist Affiliation Unknown Race Black or Edda rican Ethnic Group Unknown Author Organization [facility] Address [address] [place] [address] Care Team Providers Care Inspector Canned Food Reconditioning Name Role Phone Physician, Pcp Unknown Primary Care Provider Carmen vailable Encounter Details Date Type Department Care Team (Late st Contact Info) Description 10/29/2024 Lab Requisition [facility] - Main Lab [address] [facility] [place] [address] Naresh Lennon PA [address] [place] [phone] Testicular hypofunction Social History Tobacco Use Types [...] AM EDT) WBC 8.1 4.8 - 10.8 K/[facility] LAB HEMETOLOGY METHOD 10/29/2024 1:34 PM [facility] LAB RBC 6.10(H) 4.50 - 5.50 M/mcL LAB HEMETOLOGY METHOD 10/29/2024 1:34 PM [facility] LAB Hemoglobin 18.3(H) 13.5 - 17.5 g/dL LAB HEMETOLOGY METHOD 10/29/2024 1:34 PM [facility] LAB Hematocrit 58.9(H) 42.0 - 54.0 % LAB HEMETOLOGY METHOD 10/29/2024 1:34 PM [facility] LAB MCV 96.4 79.0 - 98.0 FL LAB HEMETOLOGY METHOD 10/29/2024 1:34 PM [facility] LAB MCH 30.0 27.0 - 32.0 pcg LAB HEMETOLOGY METHOD 10/29/2024 1:34 PM [facility] LAB MCHC 31.1(L) 32.0 - 37.0 g/dL LAB HEMETOLOGY METHOD 10/29/2024 1:34 PM [facility] LAB RDW 13.6 11.0 - 15.0 % LAB HEMETOLOGY METHOD 10/29/2024 1:34 PM [facility] LAB Platelets 318 130 - 400 K/mcL LAB HEMETOLOGY METHOD 10/29/2024 1:34 PM [facility] LAB MPV 11.9(H) 7.0 - 11.0 FL LAB HEMETOLOGY METHOD 10/29/2024 1:34 PM [facility] LAB NRBC 0.2 <1.0 % LAB HEMETOLOGY METHOD 10/29/2024 1:34 PM [facility] LAB NRBC Absolute 0.02 <0.10 K/mcL LAB HEMETOLOGY METHOD 10/29/2024 1:34 PM [facility] LAB Neutrophils Relative 88.7 % LAB HEMETOLOGY METHOD 10/29/2024 1:34 PM [facility] LAB Lymphocytes Relative 7.4 % LAB HEMETOLOGY METHOD 10/29/2024 1:34 PM [facility] LAB Monocytes Relative 1.9 % LAB HEMETOLOGY METHOD 10/29/2024 1:34 PM [facility] LAB Eosinophils Relative 1.0 % LAB HEMETOLOGY METHOD 10/29/2024 1:34 PM [facility] LAB Basophils Relative 0.1 % LAB HEMETOLOGY METHOD 10/29/2024 1:34 PM [facility] LAB Immature Granulocytes Relative 0.9 % LAB HEMETOLOGY METHOD 10/29/2024 1:34 PM [facility] LAB Neutrophils Absolute 7.18(H) 1.50 - 7.00 K/mcL LAB HEMETOLOGY METHOD 10/29/2024 1:34 PM [facility] LAB Lymphocytes Absolute 0.60(L) 1.00 - 5.00 K/mcL LAB HEMETOLOGY METHOD 10/29/2024 1:34 PM [facility] LAB Monocytes Absolute 0.15(L) 0.20 - 1.00 K/mcL LAB HEMETOLOGY METHOD 10/29/2024 1:34 PM [facility] LAB Eosinophils Absolute 0.08 0.00 - 0.50 K/mcL LAB HEMETOLOGY METHOD 10/29/2024 1:34 PM [facility] LAB Basophils Absolute 0.01 0.00 - 0.20 K/mcL LAB HEMETOLOGY METHOD 10/29/2024 1:34 PM [facility] LAB Immature Granulocytes Absolute 0.07(H) 0.00 - 0.03 K/mcL LAB HEMETOLOGY METHOD 10/29/2024 1:34 PM [facility] LAB Blood Venous blood specimen / Unknown 10/29/2024 8:57 AM EDT 10/29/2024 1:05 PM EDT us Naresh MUNOZ LAB BLOOD ORDERABLES Final Res ult [facility] [address] [place] [address], [place] [phone] documented in this encounter Visit Diagnoses Diagnosis Testicular hypofunction Other testicular hypofunction documented in this encounter Care Teams Inspector Canned Food Reconditioning Relationship Specialty Start Date End Date Physician, Pcp Unknown PCP - General 01/26/25 documented as of this encounter
--- OUTSIDE RECORDS SUMMARY | 2025-05-21 13:13 | XMS_ITS | Clinical Summary ---
Author Organization [facility], Address [address] [place] [address] [place] [address] Phone Care Team Providers Care Mailer Name Role Phone Alexey Espinosa MD Primary Care Provider [phone] Social History Tobacco Use Types Packs/Day Years [...] 2025 Insurance Medicare Medicaid [place] Care Teams Mailer Relationship Specialty Start Date End Date Alexey Espinosa MD [address] [place] [phone] PCP - General Internal Medicine 03/25/24
--- OUTSIDE RECORDS SUMMARY | 2025-05-21 13:13 | XMS_ITS | Encounter Summary ---
Demographics Address [address] [place] [address] Home Phone Mobile Phone Home Phone Email Address Email Address Email Address Preferred Language Unknown Marital Status Unknown Scientology Affiliation Unknown Race Black or Edda rican Ethnic Group Unknown Author Organization [facility] Address [address] [place] [address] Care Team Providers Care Second Miller Name Role Phone Physician, Pcp Unknown Primary Care Provider Carmen vailable Encounter Details Date Type Department Care Team (Late st Contact Info) Description 10/25/2024 Lab Requisition [facility] - Main Lab [address] [facility] [place] [address] Naresh Lennon PA [address] [place] [phone] Testicular hypofunction Social History Tobacco Use Types [...] LAB CHEMISTRY METHOD 10/25/2024 3:25 PM EDT [facility] LAB Albumin 3.5 3.2 - 5.0 g/dL LAB CHEMISTRY METHOD 10/25/2024 3:25 PM EDT [facility] Total Bilirubin 0.4 0.0 - 1.4 mg/dL LAB CHEMISTRY METHOD 10/25/2024 3:25 PM [facility] LAB Bilirubin, Direct 0.1 0.0 - 0.3 mg/dL LAB CHEMISTRY METHOD 10/25/2024 3:25 PM EDT [facility] LAB Bilirubin, Indirect 0.3 0.0 - 1.1 mg/dL LAB CHEMISTRY METHOD 10/25/2024 3:25 PM [facility] LAB ALT (SGPT) 64(H) 10 - 60 unit/L LAB CHEMISTRY METHOD 10/25/2024 3:25 PM [facility] LAB AST (SGOT) 26 10 - 42 unit/L LAB CHEMISTRY METHOD 10/25/2024 3:25 PM [facility] LAB Alkaline Phosphatase 85 42 - 121 unit/L LAB CHEMISTRY METHOD 10/25/2024 3:25 PM [facility] LAB Blood Venous blood specimen / Unknown 10/25/2024 9:02 AM EDT 10/25/2024 12:19 PM EDT us Naresh MUNOZ LAB BLOOD ORDERABLES Final Res ult [facility] LAB [address] [place] [address], * (ABNORMAL) Complete blood count (10/25/2024 9:02 AM EDT) WBC 11.2(H) 4.8 - 10.8 K/[facility] LAB HEMETOLOGY METHOD 10/25/2024 12:50 PM EDT [facility] LAB RBC 5.60(H) 4.50 - 5.50 M/mcL LAB HEMETOLOGY METHOD 10/25/2024 12:50 PM EDT [facility] LAB Hemoglobin 17.0 13.5 - 17.5 g/dL LAB HEMETOLOGY METHOD 10/25/2024 12:50 PM [facility] LAB Hematocrit 55.0(H) 42.0 - 54.0 % LAB HEMETOLOGY METHOD 10/25/2024 12:50 PM [facility] LAB MCV 98.0 79.0 - 98.0 FL LAB HEMETOLOGY METHOD 10/25/2024 12:50 PM [facility] LAB MCH 30.3 27.0 - 32.0 pcg LAB HEMETOLOGY METHOD 10/25/2024 12:50 PM [facility] LAB MCHC 30.9(L) 32.0 - 37.0 g/dL LAB HEMETOLOGY METHOD 10/25/2024 12:50 PM [facility] LAB RDW 13.6 11.0 - 15.0 % LAB HEMETOLOGY METHOD 10/25/2024 12:50 PM [facility] LAB Platelets 311 130 - 400 K/mcL LAB HEMETOLOGY METHOD 10/25/2024 12:50 PM [facility] LAB MPV 11.8(H) 7.0 - 11.0 FL LAB HEMETOLOGY METHOD 10/25/2024 12:50 PM [facility] LAB NRBC 0.0 <1.0 % LAB HEMETOLOGY METHOD 10/25/2024 12:50 PM [facility] LAB NRBC Absolute 0.00 <0.10 K/mcL LAB HEMETOLOGY METHOD 10/25/2024 12:50 PM [facility] LAB Blood Venous blood specimen / Unknown 10/25/2024 9:02 AM EDT 10/25/2024 12:19 PM EDT us Naresh MUNOZ LAB BLOOD ORDERABLES Final Res ult [facility] [address] [place] [address], documented in this encounter Visit Diagnoses Diagnosis Testicular hypofunction Other testicular hypofunction documented in this encounter Care Teams Second Miller Relationship Specialty Start Date End Date Physician, Pcp Unknown PCP - General 01/26/25 documented as of this encounter
--- OUTSIDE RECORDS SUMMARY | 2025-05-21 13:13 | XMS_ITS | Clinical Summary ---
Author Organization [facility] Address [address] [place] [address] Phone Care Team Providers Care Radio Engineer Name Role Phone Physician, Pcp Unknown Primary Care Provider Carmen vailable Allergies No known active allergies Medications No known medications Active Problems No known active problems Encounters Date Type Department Care Team Description 03/27/2025 12:17 PM EST - 03/27/2025 11:59 PM EST Hospital Encounter [facility] Xray [address] [place] [phone] Strain of muscle, fascia and tendon at [...] - 03/27/2025 11:59 PM EST Hospital Encounter [facility] Xray [address] [place] [phone] Strain of muscle, fascia and tendon at [...] - 03/27/2025 11:59 PM EST Hospital Encounter [facility] Xray [address] [place] [phone] Strain of muscle, fascia and tendon at [...] - 03/27/2025 11:59 PM EST Hospital Encounter [facility] Xray [address] [place] [phone] Strain of muscle, fascia and tendon at [...] - 03/27/2025 11:59 PM EST Hospital Encounter [facility] Xray [address] [place] [phone] Strain of muscle, fascia and tendon at [...] on file Sexual Orientation Not on file Last Filed Vital Signs Vital Sign Reading [...] Annual BMP Blood Test 12/12/2024 COVID-19 Vaccine ( - 2024-2 6 season) 2025 Influenza Vaccine [...] and hand level, left hand, initial encounter from Last 3 Months Results * XR Hand 3+ Views Left (03/27/2025 1:05 PM EST) Anatomical Region Laterality Modality Upper Extremities, Hand Left [facility] 03/28/2025 12:5 3 PM EST Impressions [...] Signed Date: 03/28/2025 12:57 ET Workstation ID: [id number] Transcribed By: Self Edit Transcribed Date: 03/28/2025 [...] Signed Date: 03/28/2025 12:57 ET Workstation ID: [id number] Transcribed By: Self Edit Transcribed Date: 03/28/2025 [...] Signed Date: 03/28/2025 12:57 ET Workstation ID: [id number] Transcribed By: Self Edit Transcribed Date: 03/28/2025 [...] Signed Date: 03/28/2025 12:57 ET Workstation ID: [id number] Transcribed By: Self Edit Transcribed Date: 03/28/2025 12:53 ET Nic Caballero MD IMG XR PROCEDURES Final [...] Signed Date: 03/28/2025 13:07 ET Workstation ID: [id number] Transcribed By: Self Edit Transcribed Date: 03/28/2025 [...] C5/C6. There are prominent transverse processes at [id number]. There is mild bony foraminal narrowing on [...] Signed Date: 03/28/2025 13:07 ET Workstation ID: [id number] Transcribed By: Self Edit Transcribed Date: 03/28/2025 [...] Signed Date: 03/28/2025 13:07 ET Workstation ID: [id number] Transcribed By: Self Edit Transcribed Date: 03/28/2025 [...] C5/C6. There are prominent transverse processes at [id number]. There is mild bony foraminal narrowing on [...] Signed Date: 03/28/2025 13:07 ET Workstation ID: [id number] Transcribed By: Self Edit Transcribed Date: 03/28/2025 [...] Signed Date: 03/28/2025 13:07 ET Workstation ID: [id number] Transcribed By: Self Edit Transcribed Date: 03/28/2025 [...] C5/C6. There are prominent transverse processes at [id number]. There is mild bony foraminal narrowing on [...] Signed Date: 03/28/2025 13:07 ET Workstation ID: [id number] Transcribed By: Self Edit Transcribed Date: 03/28/2025 12:57 ET Nic Caballero MD IMG XR PROCEDURES Final Resu lt from Last 3 Months Insurance [place] Care Teams Radio Engineer Relationship Specialty Start Date End Date Physician, Pcp Unknown PCP - General 01/26/25
--- OUTSIDE RECORDS SUMMARY | 2025-05-21 13:13 | XMS_ITS | Encounter Summary ---
Demographics Address [address] [place] [address] Home Phone Mobile Phone Home Phone Email Address Email Address Email Address Preferred Language Unknown Marital Status Unknown Christianity Affiliation Unknown Race Black or Edda rican Ethnic Group Unknown Author Organization [facility] Address [address] [place] [address] Care Team Providers Care Wet Plant Operator Name Role Phone Physician, Pcp Unknown Primary Care Provider Carmen vailable Encounter Details Date Type Department Care Team ([facility] st Contact Info) Description 07/16/2024 Lab Requisition [facility] - Main Lab [address] [facility] [place] [address] Naresh Lennon PA [address] [place] [phone] Testicular hypofunction Social History Tobacco Use Types [...] K/mcL LAB HEMETOLOGY METHOD 07/16/2024 1:55 PM [facility] LAB RBC 5.00 4.50 - 5.50 M/mcL LAB HEMETOLOGY METHOD 07/16/2024 1:55 PM [facility] LAB Hemoglobin 15.0 13.5 - 17.5 g/dL LAB HEMETOLOGY METHOD 07/16/2024 1:55 PM [facility] LAB Hematocrit 46.5 42.0 - 54.0 % LAB HEMETOLOGY METHOD 07/16/2024 1:55 PM [facility] LAB MCV 92.3 79.0 - 98.0 FL LAB HEMETOLOGY METHOD 07/16/2024 1:55 PM [facility] LAB MCH 29.8 27.0 - 32.0 pcg LAB HEMETOLOGY METHOD 07/16/2024 1:55 PM [facility] LAB MCHC 32.3 32.0 - 37.0 g/dL LAB HEMETOLOGY METHOD 07/16/2024 1:55 PM [facility] LAB RDW 14.3 11.0 - 15.0 % LAB HEMETOLOGY METHOD 07/16/2024 1:55 PM [facility] LAB Platelets 237 130 - 400 K/mcL LAB HEMETOLOGY METHOD 07/16/2024 1:55 PM [facility] LAB MPV 11.9(H) 7.0 - 11.0 FL LAB HEMETOLOGY METHOD 07/16/2024 1:55 PM [facility] LAB NRBC 0.0 <1.0 % LAB HEMETOLOGY METHOD 07/16/2024 1:55 PM [facility] LAB NRBC Absolute 0.00 <0.10 K/mcL LAB HEMETOLOGY METHOD 07/16/2024 1:55 PM [facility] LAB Neutrophils Relative 67.7 % LAB HEMETOLOGY METHOD 07/16/2024 1:55 PM [facility] LAB Lymphocytes Relative 19.0 % LAB HEMETOLOGY METHOD 07/16/2024 1:55 PM [facility] LAB Monocytes Relative 10.7 % LAB HEMETOLOGY METHOD 07/16/2024 1:55 PM [facility] LAB Eosinophils Relative 1.2 % LAB HEMETOLOGY METHOD 07/16/2024 1:55 PM [facility] LAB Basophils Relative 0.5 % LAB HEMETOLOGY METHOD 07/16/2024 1:55 PM [facility] LAB Immature Granulocytes Relative 0.9 % LAB HEMETOLOGY METHOD 07/16/2024 1:55 PM [facility] LAB Neutrophils Absolute 2.86 1.50 - 7.00 K/mcL LAB HEMETOLOGY METHOD 07/16/2024 1:55 PM [facility] LAB Lymphocytes Absolute 0.80(L) 1.00 - 5.00 K/mcL LAB HEMETOLOGY METHOD 07/16/2024 1:55 PM [facility] LAB Monocytes Absolute 0.45 0.20 - 1.00 K/mcL LAB HEMETOLOGY METHOD 07/16/2024 1:55 PM [facility] LAB Eosinophils Absolute 0.05 0.00 - 0.50 K/mcL LAB HEMETOLOGY METHOD 07/16/2024 1:55 PM [facility] LAB Basophils Absolute 0.02 0.00 - 0.20 K/mcL LAB HEMETOLOGY METHOD 07/16/2024 1:55 PM [facility] LAB Immature Granulocytes Absolute 0.04(H) 0.00 - 0.03 K/mcL LAB HEMETOLOGY METHOD 07/16/2024 1:55 PM [facility] Blood Venous blood specimen / Unknown 07/16/2024 9:07 AM EST 07/16/2024 1:09 PM EST us Naresh Lennon PA LAB BLOOD ORDERABLES Final Res ult [facility] [address] [place] [address], documented in this encounter Visit Diagnoses Diagnosis Testicular hypofunction Other testicular hypofunction documented in this encounter Care Teams Wet Plant Operator Relationship Specialty Start Date End Date Physician, Pcp Unknown PCP - General 01/26/25 documented as of this encounter
== END 2025-05-21 12:18 | disposition home or self-care (01) ==
LOC: HO.HKAS 11:30
PROVIDERS: PCP Internal Medicine; Visit Provider Internal Medicine Critical Care Medicine
DX: N18.30 Chronic kidney disease, stage 3 unspecified (principal); M1A.39X1 Chronic gout due to renal impairment, multiple sites, with tophus (tophi); I10 Essential (primary) hypertension
CPT/HCPCS: 99204

== ENCOUNTER → 2025-05-21 11:30 | Outpatient (BNVA) | payer MEDICARE, MEDICAID, SELFPAY | PROVIDERS: PCP Internal Medicine; Visit Provider Internal Medicine Critical Care Medicine | DX: I12.9 Hypertensive chronic kidney disease with stage 1 through stage 4 chronic kidney disease, or unspecified chronic kidney disease (principal); N18.30 Chronic kidney disease, stage 3 unspecified; M1A.39X1 Chronic gout due to renal impairment, multiple sites, with tophus (tophi) | CPT/HCPCS: 99202 ==